=== PATIENT | female | born 1970 | race Caucasian/White ===

== ENCOUNTER 2017-11-14 08:07 | Emergency (ER) | payer MEDICARE ==
[2017-11-14] MEDS ORDERED: Hydromorphone 1 mg/ml Ampule IM ONE (08:24)
[2017-11-14] MEDS ORDERED: ZOFRAN ODT 4 MG PO ONE (08:25)
[2017-11-14] MEDS ORDERED: Zofran 4 MG/2 ML VIAL ONE (08:27)
[2017-11-14] MEDS ORDERED: DILAUDID 2 MG INJECTION ONE (08:27)
--- NOTE | 2017-11-14 08:28 | ERPHSYRPT ---
- History of Present Illness Time Seen by Provider: 11/14/17 08:26 Source: patient, family Patient Subjective Stated Complaint: pt here for pain to left arm, pt states that she was getting ready for dyalsis today and she had sudden pain to upper left arm, she states is a squeezing pain, she is moaning out and yelling at staff. Triage Nursing Assessment: pt has strong radial pulse to right arm, hand warm, upper arm with fistula with weak brui Physician History: mod constant pain ache today at dialysis when theyt attempted to access the fistula, no active bleeding, no fever, no other injury Allergies/Adverse Reactions: Penicillins Allergy (Verified 11/14/17 08:22) Hx Influenza Vaccination/Date Given: Yes Hx Pneumococcal Vaccination/Date Given: No Immunizations Up to Date: Yes - Review of Systems Constitutional: No Fever Respiratory: No Dyspnea Cardiac: No Chest Pain Abdominal/Gastrointestinal: No Vomiting Neurological: No Dizziness - Past Medical History Pertinent Past Medical History: Yes Endocrine Medical History: Diabetes Type II History: Dialysis - Past Surgical History Past Surgical History: Yes Other Surgical History: fistula - Social History Smoking Status: Current every day smoker Exposure to second hand smoke: Yes Drug Use: none Patient Lives Alone: No - Female History Hx Last Menstrual Period: post Hx Now: No - Nursing Vital Signs Nursing Vital Signs: Pain Scale Pain Intensity 8 - Physical Exam General Appearance: no apparent distress Neck Exam: normal inspection Respiratory Exam: No respiratory distress Cardiovascular Exam: regular rate/rhythm Extremity Exam: other (tender left arm fistula, hand is warm, no streaks) Neurologic Exam: alert, oriented x 3 Oxygen Delivery: Room Air - Course Nursing assessment & vital signs reviewed: Yes Ordered Tests: Medication Summary Discontinued Medications Generic Name Dose Route Start Last Admin Trade Name Paulq PRN Reason Stop Dose Admin Hydromorphone HCl 1 mg 11/14/17 08:24 Hydromorphone 1 Mg/Ml Ampule IM 11/14/17 08:25 STAT ONE Hydromorphone HCl Confirm 11/14/17 08:27 Dilaudid 2 Mg Injection Administered 11/14/17 08:28 Dose 2 mg .ROUTE .STK-MED ONE Ondansetron HCl 4 mg 11/14/17 08:25 Zofran Odt 4 Mg PO 11/14/17 08:26 STAT ONE Ondansetron HCl Confirm 11/14/17 08:27 Zofran 4 Mg/2 Ml Vial Administered 11/14/17 08:28 Dose 4 mg .ROUTE .STK-MED ONE Ondansetron HCl Confirm 11/14/17 08:30 Zofran Odt 4 Mg Administered 11/14/17 08:31 Dose 4 mg .ROUTE .STK-MED ONE - Progress Progress: improved Progress Note: 11/14/17 08:37 Dr London requests that the pt transfer to his office immediately Counseled pt/family regarding: need for follow-up - Departure Time of Disposition: 08:37 Departure Disposition: Transfer Clinical Impression: Fistula Condition: Stable Critical Care Time: No Referrals: FIOR DASILVA [Primary Care Provider] -
[2017-11-14] MEDS ORDERED: ZOFRAN ODT 4 MG ONE (08:30)
[2017-11-14 08:57] VITALS: BP 146/80; PULSE 82; O2SAT 96
== END 2017-11-14 09:05 | disposition critical access hospital (66) ==
LOC: ED 08:07
DX: M25.18 Fistula, other specified site (principal); M79.622 Pain in left upper arm; Z72.0 Tobacco use
CPT/HCPCS: 96372; 99284; J1170; J2405; Q0162

== ENCOUNTER 2019-03-10 10:11 | Emergency (ER) | payer MEDICARE ==
--- NOTE | 2019-03-10 10:33 | ERPHSYRPT ---
- History of Present Illness Time Seen by Provider: 03/10/19 10:20 Source: patient, other ([facility]) Exam Limitations: no limitations Patient Subjective Stated Complaint: Pt was at dialysis and the nurse noticed that she was very lethargic and couldn't answer questions, once pt got to the ER she is answering questions and acting appropriately, pt states that she took codeine cough syrup yesterday and her said that she wasn't making any sense when she spoke and then last night around [id number] she took a tylenol #3 and she stated that she was lethargic and confused this morning Triage Nursing Assessment: Pt brought by EMS, pt A&O x3, hypertensive, denies pain, right eye filled with blood, no difficulties with strength, other vitals wnl Physician History: Patient was referred to the emergency department by [facility]. Patient gets dialysis Sunday, Sunday and Sunday. Per nursing report at [facility], patient was 100.4kg on 03/07/2019 and was 102kg on 03/10/2019. Patient did not finish dialysis and was given 500cc of fluid back due to patient having altered mental status during dialysis. Patient's altered mental status resolved by the time she left the dialysis center at 10:00 on 2018. Patient has been taking Tylenol with codeine for a cough from pneumonia, with diagnosis of pneumonia from 3 weeks ago. The last time she took Tylenol with codeine was @ 23:00 on 03/09/2019. Timing/Duration: today (occured at 09:35, resolved by 10:00), resolved prior to arrival, sudden Severity: moderate Modifying Factors: Improves With: nothing Associated Symptoms: other (altered mental status), No nausea, No vomiting, No abdominal pain, No shortness of breath, No heartburn, No diaphoresis, No chills , No chest pain, No fever, No headaches, No loss of appetite, No malaise, No rash, No syncope, No seizure, No weakness Allergies/Adverse Reactions: DAVID Inhibitors Allergy (Verified 03/10/19 10:25) Penicillins Allergy (Verified 11/14/17 08:22) Home Medications: Atropine Sulfate [Atropine Sulfate Eye Drops] 1 drop OP BID 03/10/19 [History] Bimatoprost 0.01% [Lumigan 0.01% 2.5 ml] 1 drop OP UD 03/10/19 [History] Brimonidine Tartrate/Timolol [Combigan 0.2%-0.5% Eye Drops] 1 drop OP UD [History] Codeine Phosphate/APAP #3 [Tylenol #3 Tablet] 1 - 2 tab PO Q4H PRN 03/10/19 [History] Dorzolamide HCl 1 drop OP TID 03/10/19 [History] Latanoprost 1 drop OP HS 03/10/19 [History] Promethazine HCl/Codeine [Prometh-Codein 6.25-10 mg/5 ml] 5 ml PO Q6H PRN [History] acetaZOLAMIDE [Acetazolamide ER] 500 mg PO BID 03/10/19 [History] prednisoLONE acetate [Prednisolone Acetate] 1 drop OP Q2H 03/10/19 [History] Hx Influenza Vaccination/Date Given: Yes Hx Pneumococcal Vaccination/Date Given: No - Review of Systems Constitutional: No Fever, No Chills, No Fatigue Eyes: No Eye Pain, No Vision Changes Ears, Nose, & Throat: No Nose Congestion, No Throat Pain, No Throat Swelling, No Painful Swallowing Respiratory: Cough, No Dyspnea Cardiac: No Chest Pain, No Edema, No Palpitations, No Syncope Abdominal/Gastrointestinal: No Abdominal Pain, No Nausea, No Vomiting, No Hematemesis, No Hematochezia, No Melena Genitourinary Symptoms: No Dysuria, No Frequency, No Hematuria, No Flank Pain Musculoskeletal: No Back Pain, No Neck Pain, No Joint Swelling Skin: No Pruritis, No Rash Neurological: No Dizziness, No Focal Weakness, No Headache, No Lethargy, No Sensory Changes, No Speech Changes Psychological: No Anxiety Endocrine: No Excessive Sweating Hematologic/Lymphatic: No Easy Bleeding, No Easy Bruising All Other Systems: Reviewed and Negative - Past Medical History Pertinent Past Medical History: Yes Endocrine Medical History: Diabetes Type II History: Dialysis - Past Surgical History Past Surgical History: Yes Other Surgical History: fistula - Social History Smoking Status: Current every day smoker How long have you smoked: 30 years Exposure to second hand smoke: Yes Drug Use: none Patient Lives Alone: No - Female History Hx Now: No - Nursing Vital Signs Nursing Vital Signs: Initial Vital Signs Temperature 97.6 F 03/10/19 10:12 Pulse Rate 93 H 03/10/19 10:12 Blood Pressure 153/53 03/10/19 10:12 O2 Sat by Pulse Oximetry 98 03/10/19 10:12 Pain Scale Pain Intensity 0 - Physical Exam General Appearance: no apparent distress, alert Eye Exam: PERRL/EOMI, eyes nml inspection, No scleral icterus, No pale conjunctivae Ears, Nose, Throat Exam: normal ENT inspection, TMs normal, pharynx normal, moist mucous membranes Neck Exam: normal inspection, non-tender, supple, full range of motion, No meningismus, No Brudzinski, No Kernig's, No limited range of motion, No lymphadenopathy Respiratory Exam: normal breath sounds, lungs clear, airway intact, No chest tenderness, No respiratory distress, No diminished breath sounds, No accessory muscle use, No prolonged expirations, No crackles/rales, No rhonchi, No wheezing , No stridor, No pleural rub Cardiovascular Exam: regular rate/rhythm, normal heart sounds, normal peripheral pulses, capillary refill <2 sec Gastrointestinal/Abdomen Exam: soft, normal bowel sounds, No tenderness, No distention, No guarding, No ecchymosis Back Exam: normal inspection, normal range of motion, No CVA tenderness, No vertebral tenderness, No rash Extremity Exam: normal inspection, normal range of motion, pelvis stable, No kvng's sign Neurologic Exam: alert, oriented x 3, cooperative, fashion supervisor II-XII nml as tested, normal mood/affect, nml cerebellar function, sensation nml, No motor deficits, No agitation, No motor weakness Skin Exam: normal color, warm, dry, No rash, No petechiae, No jaundice, No cyanosis SpO2 Interpretation: normal SpO2: 98 O2 Delivery: Room Air - Course Nursing assessment & vital signs reviewed: Yes EKG Interpreted by Me: RATE (83), Sinus Rhythm, NORMAL AXIS, NORMAL INTERVALS, NORMAL QRS, NORMAL ST-T, Other (negative previous EKGis available for comparison ) - Radiology Exams Chest X-ray Interpretation: Reviewed by me, Other (per radiologist interpretation: portable chest there is requiring previous right upper/right middle lobe infiltrate with chronic fibrosis/scarring. The left base fibrosis/scarring and left upper extremity graft. Heart is not enlarged. No new acute cardiopulmonary abnormalities.) Ordered Tests: Active Orders 24 hr Category Date Time Status Chef De Froid STAT Care 03/10/19 10:28 Active Cath for Specimen-Straight STAT Care 03/10/19 10:27 Active EKG-ER Only STAT Care 03/10/19 10:25 Active IV Insertion STAT Care 03/10/19 10:25 Active CHEST 1 VIEW (PORTABLE) Stat Exams 03/10/19 10:26 Completed AMYLASE Stat Lab 03/10/19 10:40 Completed CBC W DIFF Stat Lab 03/10/19 10:40 Completed CMP Stat Lab 03/10/19 10:40 Completed CULTURE,URINE Stat Lab 03/10/19 10:26 Uncollected LIPASE Stat Lab 03/10/19 10:40 Completed Lactic Acid Stat Lab 03/10/19 10:50 Completed PROTIME WITH INR Stat Lab 03/10/19 10:40 Completed TROPONIN Q3H Lab 03/10/19 10:40 Completed TROPONIN Q3H Lab 03/10/19 13:30 Ordered TROPONIN Q3H Lab 03/10/19 16:30 Ordered TROPONIN Q3H Lab 03/10/19 19:30 Ordered TROPONIN Q3H Lab 03/10/19 22:30 Ordered UA W/RFX UR CULTURE Stat Lab 03/10/19 10:26 Uncollected Urine Triage Profile Stat Lab 03/10/19 10:26 Uncollected Lab/Rad Data: Laboratory Result Diagrams 03/10/19 10:40 03/10/19 10:40 Laboratory Results 03/10/19 03/10/19 03/10/19 Range/Units 10:50 10:40 10:40 WBC (4.0-10.5) K/mm3 RBC (4.1-5.4) M/mm3 Hgb (12.0-16.0) gm/dl Hct (35-47) % MCV (78-100) fl MCH (26-32) pg MCHC (32-36) g/dl RDW (11.5-14.0) % Plt Count (150-450) K/mm3 MPV (6-9.5) fl Gran % (36.0-66.0) % Eos # (Auto) (0-0.5) Absolute Lymphs (auto) (1.0-4.6) Absolute Monos (auto) (0.0-1.3) Lymphocytes % (24.0-44.0) % Monocytes % (0.0-12.0) % Eosinophils % (0.00-5.0) % Basophils % (0.0-0.4) % Absolute Granulocytes (1.4-6.9) Basophils # (0-0.4) PT 11.9 (9.95-12.35) SECONDS INR 1.05 (0.8-3.0) Sodium (137-145) mmol/L Potassium (3.5-5.1) mmol/L Chloride (98-107) mmol/L Carbon Dioxide (22-30) mmol/L Anion Gap (5-15) MEQ/L BUN (7-17) mg/dL Creatinine (0.52-1.04) mg/dL Estimated GFR ML/MIN Glucose (74-106) mg/dL Lactic Acid 1.2 (0.4-2.0) Calcium (8.4-10.2) mg/dL Total Bilirubin (0.2-1.3) mg/dL AST (14-36) U/L ALT (0-35) U/L Alkaline Phosphatase (38-126) U/L Troponin I < 0.012 (0.000-0.034) ng/mL Serum Total Protein (6.3-8.2) g/dL Albumin (3.5-5.0) g/dL Amylase (30-110) U/L Lipase (23-300) U/L 03/10/19 03/10/19 Range/Units 10:40 10:40 WBC 5.0 (4.0-10.5) K/mm3 RBC 2.79 L (4.1-5.4) M/mm3 Hgb 9.3 L (12.0-16.0) gm/dl Hct 30.7 L (35-47) % MCV 110.0 H (78-100) fl MCH 33.3 H (26-32) pg MCHC 30.3 L (32-36) g/dl RDW 15.9 H (11.5-14.0) % Plt Count 145 L (150-450) K/mm3 MPV 11.0 H (6-9.5) fl Gran % 77.6 H (36.0-66.0) % Eos # (Auto) 0.11 (0-0.5) Absolute Lymphs (auto) 0.70 L (1.0-4.6) Absolute Monos (auto) 0.29 (0.0-1.3) Lymphocytes % 14.0 L (24.0-44.0) % Monocytes % 5.8 (0.0-12.0) % Eosinophils % 2.2 (0.00-5.0) % Basophils % 0.4 (0.0-0.4) % Absolute Granulocytes 3.89 (1.4-6.9) Basophils # 0.02 (0-0.4) PT (9.95-12.35) SECONDS INR (0.8-3.0) Sodium 140 (137-145) mmol/L Potassium 4.4 (3.5-5.1) mmol/L Chloride 95 L (98-107) mmol/L Carbon Dioxide 33 H (22-30) mmol/L Anion Gap 16.9 H (5-15) MEQ/L BUN 47 H (7-17) mg/dL Creatinine 8.65 H (0.52-1.04) mg/dL Estimated GFR 5.2 ML/MIN Glucose 139 H (74-106) mg/dL Lactic Acid (0.4-2.0) Calcium 8.6 (8.4-10.2) mg/dL Total Bilirubin 0.70 (0.2-1.3) mg/dL AST 16 (14-36) U/L ALT 14 (0-35) U/L Alkaline Phosphatase 82 (38-126) U/L Troponin I (0.000-0.034) ng/mL Serum Total Protein 7.4 (6.3-8.2) g/dL Albumin 4.1 (3.5-5.0) g/dL Amylase 62 (30-110) U/L Lipase 111 (23-300) U/L - Progress Progress: unchanged Progress Note: 03/10/19 11:28 Patient has no signs of any focal neurologic deficits, has maintained sinus rhythm on the cardiac nurse specialist her entire time in the emergency department and has no alterations in her mental status during her time in the emergency department. Most likely her symptoms were due to medication, and the patient did call over to dialysis and they stated that her chair is still available and she would like to go to finish her dialysis session. I find no reason that the patient requires any further monitoring in the emergency department or needs any inpatient evaluation and treatment, and she can be discharged home. Patient understands she may come back to the emergency department at any time if her symptoms return or has any other new symptoms that were present in the emergency room visit for reevaluation in the emergency department. Counseled pt/family regarding: lab results, diagnosis, need for follow-up, rad results - Departure Departure Disposition: Home Clinical Impression: Delirium, Elevated blood pressure reading without diagnosis of hypertension, Macrocytic anemia Condition: Good Critical Care Time: No Referrals: FIOR DASILVA [Primary Care Provider] - 03/11/19 Instructions: Delirium (Confusion) (DC), DASH Diet, Vitamin B12 Deficiency and Folic Acid Deficiency Additional Instructions: Return immediately back to the emergency department if you have any change in mental status, new chest pain, new back pain, any shortness of breath, new abdominal pain, new fever, new skin rash, or any other concerning signs or symptoms that were not present at today's emergency room visit for immediate reevaluation in the emergency department. Follow-up directly with a [facility] dialysis straight from the emergency Department to finish your session.
[2019-03-10 10:43] LABS: Absolute Neutrophil Ct (ANC) 3.89 (1.4-6.9); BASOPHIL % 0.4 % (0.0-0.4); Basophil (Absolute #) 0.02 (0-0.4); Eosinophil % 2.2 % (0.00-5.0); Eosinophil (Absolute #) 0.11 (0-0.5); Hematocrit 30.7 % (35-47); Hemoglobin 9.3 gm/dl (12.0-16.0); Mean Corpuscular Hemoglobin 33.3 pg (26-32); Mean Corpuscular Hgb Concent. 30.3 g/dl (32-36); Monocyte (Absolute #) 0.29 (0.0-1.3); Monocytes % 5.8 % (0.0-12.0); Neutrophil % 77.6 % (36.0-66.0); Platelet Count 145 K/mm3 (150-450); Red Blood Count 2.79 M/mm3 (4.1-5.4); Red Cell Distribution Width 15.9 % (11.5-14.0)
--- NOTE | 2019-03-10 10:45 | XRAY ---
Indication: Cough. Recent pneumonia. Comparison: February 17, 2019. Portable chest demonstrates clearing previous right upper/right middle lobe infiltrates with remnant fibrosis/scarring. Stable left base fibrosis/scarring and left upper extremity stent grafts. Heart is not enlarged. No new acute cardiopulmonary abnormalities.
[2019-03-10 10:55] LABS: INR 1.05 (0.8-3.0); PROTIME 11.9 SECONDS (9.95-12.35)
[2019-03-10 11:01] LABS: ALBUMIN 4.1 g/dL (3.5-5.0); ANION GAP 16.9 MEQ/L (5-15); BILIRUBIN,TOTAL 0.7 mg/dL (0.2-1.3); Calcium 8.6 mg/dL (8.4-10.2); Creatinine 1 8.65 mg/dL (0.52-1.04); Potassium 4.4 mmol/L (3.5-5.1); Total Protein 7.4 g/dL (6.3-8.2)
[2019-03-10 11:22] VITALS: BP 159/65; PULSE 79
[2019-03-10 11:33] VITALS: O2SAT 98
== END 2019-03-10 11:44 | disposition home or self-care (01) ==
LOC: ED 10:11
DX: R41.0 Disorientation, unspecified (principal); R03.0 Elevated blood-pressure reading, without diagnosis of hypertension; D53.9 Nutritional anemia, unspecified; Z99.2 Dependence on renal dialysis; R41.82 Altered mental status, unspecified; Z79.899 Other long term (current) drug therapy
CPT/HCPCS: 36000; 36415; 71045; 80053; 82150; 83605; 83690; 84484; 85025; 85610; 93005; 93041; 99284

== ENCOUNTER 2020-10-24 18:46 | Emergency (ER) | payer MEDICARE ==
--- NOTE | 2020-10-24 19:29 | ERPHSYRPT ---
- History of Present Illness Time Seen by Provider: 10/24/20 18:55 Source: patient Exam Limitations: no limitations Patient Subjective Stated Complaint: pt here for a fall she states she missed a curb and landed on her knees, pain is worse to left knee Triage Nursing Assessment: pt alert, resp easy, skin w/d/p. able to parial wt on left leg Physician History: Patient is a 50-year-old female who presents with history of a fall she has limited vision due to her chronic end-stage renal disease and she missed a curb she fell landing on both knees and both hands the right knee seems to be okay but does have some pain the hands have some pain but the most pain is in the left knee. Occurred: just prior to arrival Reason for Fall: tripped Injuries/Pain Location: upper extremity (Both hands), lower extremity (Both knees) Loss of Consciousness: no loss of consciousness Severity of Pain-Max: moderate Severity of Pain-Current: moderate Modifying Factors: Improves With: nothing Associated Symptoms (Fall): denies symptoms Allergies/Adverse Reactions: DAVID Inhibitors Allergy (Verified 10/24/20 18:57) Penicillins Allergy (Verified 10/24/20 18:57) Home Medications: Atropine Sulfate [Atropine Sulfate Eye Drops] 1 drop OP BID 03/10/19 [History] Bimatoprost 0.01% [Lumigan 0.01% 2.5 ml] 1 drop OP UD 03/10/19 [History] Brimonidine Tartrate/Timolol [Combigan 0.2%-0.5% Eye Drops] 1 drop OP UD 03/10/19 [History] Dorzolamide HCl 1 drop OP TID 03/10/19 [History] acetaZOLAMIDE [Acetazolamide ER] 500 mg PO BID 03/10/19 [History] prednisoLONE acetate [Prednisolone Acetate] 1 drop OP Q2H 03/10/19 [History] Glipizide 5 mg [Glucotrol 5 MG] 1 ea DAILY 10/24/20 [History] Hx Influenza Vaccination/Date Given: No Hx Pneumococcal Vaccination/Date Given: No Immunizations Up to Date: Yes Travel Risk - International Travel Have you traveled outside of the country in past 3 weeks: No - Coronavirus Screening Are you exhibiting any of the following symptoms?: No Close contact with a COVID-19 positive Pt in past 14-21 Days: No - Vaccine Status Have you recieved a Covid-19 vaccination: No - Review of Systems Constitutional: No Fever, No Chills Eyes: No Symptoms Ears, Nose, & Throat: No Symptoms Respiratory: No Cough, No Dyspnea Cardiac: No Chest Pain, No Edema, No Syncope Abdominal/Gastrointestinal: No Abdominal Pain, No Nausea, No Vomiting, No Diarrhea Genitourinary Symptoms: No Dysuria Musculoskeletal: No Back Pain, No Neck Pain Skin: No Rash Neurological: No Dizziness, No Focal Weakness, No Sensory Changes Psychological: No Symptoms Endocrine: No Symptoms All Other Systems: Reviewed and Negative - Past Medical History Pertinent Past Medical History: Yes Neurological History: Peripheral Neuropathy ENT History: Other Cardiac History: Hypertension Endocrine Medical History: Diabetes Type II History: Dialysis, Renal Disease Other Medical History: legally blind - Past Surgical History Past Surgical History: Yes Other Surgical History: fistula - Social History Smoking Status: Current every day smoker How long have you smoked: 30 years Exposure to second hand smoke: Yes Drug Use: none Patient Lives Alone: No - Female History Hx Last Menstrual Period: post - Nursing Vital Signs Nursing Vital Signs: Pain Scale Pain Intensity 10 - Joel Coma Score Best Eye Response (Joel): (4) open spontaneously Best Verbal Response (Joel): (5) oriented Best Motor Response (Wayne): (6) obeys commands Joel Total: 15 - Physical Exam General Appearance: no apparent distress, alert Head Injury: no evidence of injury Eye Exam: PERRL/EOMI ENT Exam: airway nml Neck Exam: normal inspection, No tenderness Respiratory/Chest Exam: normal breath sounds, No chest tenderness, No respiratory distress Cardiovascular Exam: normal heart sounds, regular rate/rhythm Gastrointestinal Exam: soft, No tenderness, No distention, No guarding, No ecchymosis Back Exam: normal inspection, No vertebral tenderness Extremity Exam: normal range of motion, pelvis stable, other (Both hands and both knees were examined both knees are tender the left more than the right both hands have some slight tenderness but full range of motion neurovascular tendon intact), No deformities Neurologic Exam: alert, oriented x 3, cooperative, sensation nml, No motor deficits Skin Exam: normal color, warm, dry - Course Nursing assessment & vital signs reviewed: Yes - Radiology Exams Knee X-ray Interpretation: Interpreted by me, Other (X-rays of both hands and both knees are negative for fracture or dislocation) Ordered Tests: Active Orders 24 hr Category Date Time Status HAND (MINIMUM 3 VIEWS) Stat Exams 10/24/20 19:29 Taken HAND (MINIMUM 3 VIEWS) Stat Exams 10/24/20 19:29 Taken KNEE (3 VIEWS) Stat Exams 10/24/20 19:29 Taken KNEE (3 VIEWS) Stat Exams 10/24/20 19:29 Taken - Progress Progress: unchanged - Departure Departure Disposition: Home Clinical Impression: Fall, Multiple contusions Condition: Stable Critical Care Time: No Referrals: FIOR DASILVA [Primary Care Provider] - Instructions: Contusion (DC), Preventing Falls
[2020-10-24 19:53] VITALS: BP 117/50; PULSE 66; O2SAT 97
--- NOTE | 2020-10-25 08:47 | XRAY ---
Indication: Pain following fall. Comparison: None 3 view left knee demonstrates mild medial joint space narrowing and extensive scattered vascular calcifications. No other bony, articular, or soft tissue abnormalities.
--- NOTE | 2020-10-25 08:47 | XRAY ---
Indication: Pain following fall. Comparison: None 3 view right knee demonstrates mild medial joint space narrowing and extensive scattered vascular calcifications. No other bony, articular, or soft tissue abnormalities.
--- NOTE | 2020-10-25 08:47 | XRAY ---
Indication: Pain following fall. Comparison: None 3 view left hand demonstrates old 5th metacarpal fracture and scattered vascular calcifications. No other bony, articular, or soft tissue abnormalities.
--- NOTE | 2020-10-25 08:49 | XRAY ---
Indication: Pain following fall. Comparison: None 3 view right hand demonstrates scattered vascular calcifications. No other bony, articular, or soft tissue abnormalities.
== END 2020-10-24 20:00 | disposition home or self-care (01) ==
LOC: ED 18:46
DX: S80.02XA Contusion of left knee, initial encounter (principal); S80.01XA Contusion of right knee, initial encounter; S60.222A Contusion of left hand, initial encounter; S60.221A Contusion of right hand, initial encounter; W10.1XXA Fall (on)(from) sidewalk curb, initial encounter; I10 Essential (primary) hypertension; E11.9 Type 2 diabetes mellitus without complications; G62.9 Polyneuropathy, unspecified
CPT/HCPCS: 73130; 73562; 99283

== ENCOUNTER 2021-09-24 18:51 | Emergency (ER) | payer MEDICARE ==
[2021-09-24 19:07] VITALS: BP 109/83; PULSE 85; O2SAT 94
--- NOTE | 2021-09-25 00:37 | ERPHSYRPT ---
- History of Present Illness Time Seen by Provider: 09/24/21 18:53 Source: patient Exam Limitations: no limitations Patient Subjective Stated Complaint: pt here for drainage to dialysis fistula seen yesterday, she had ballooning of that on and dialysis on sunday, Triage Nursing Assessment: pt alert, walked in, resp easy, skin w/d/p. has fistula to right upper arm with good bure, has serous drainage noted Physician History: 51 years old female with history of end-stage renal disease on dialysis had some kind of procedure done on the right fistula 2 days ago presented in the ER after she noticed some clear drainage from area of fistula in the arm. Patient reports she has dialysis done yesterday. Denies any pain swelling redness. No fever or chills reported. Timing/Duration: yesterday, gradual onset Severity: mild Associated Symptoms: denies symptoms Allergies/Adverse Reactions: DAVID Inhibitors Allergy (Verified 09/24/21 19:07) Penicillins Allergy (Verified 09/24/21 19:07) Home Medications: Atropine Sulfate [Atropine Sulfate Eye Drops] 1 drop OP BID 03/10/19 [History] Bimatoprost 0.01% [Lumigan 0.01% 2.5 ml] 1 drop OP UD 03/10/19 [History] Brimonidine Tartrate/Timolol [Combigan 0.2%-0.5% Eye Drops] 1 drop OP UD 03/10/19 [History] Dorzolamide HCl 1 drop OP TID 03/10/19 [History] acetaZOLAMIDE [Acetazolamide ER] 500 mg PO BID 03/10/19 [History] prednisoLONE acetate [Prednisolone Acetate] 1 drop OP Q2H 03/10/19 [History] Glipizide 5 mg [Glucotrol 5 MG] 1 ea DAILY 10/24/20 [History] Hx Influenza Vaccination/Date Given: No Hx Pneumococcal Vaccination/Date Given: No Immunizations Up to Date: Yes Travel Risk - International Travel Have you traveled outside of the country in past 3 weeks: No - Coronavirus Screening Are you exhibiting any of the following symptoms?: No Close contact with a COVID-19 positive Pt in past 14-21 Days: No - Vaccine Status Have you recieved a Covid-19 vaccination: No - Review of Systems Constitutional: No Symptoms Ears, Nose, & Throat: No Symptoms Respiratory: No Symptoms Cardiac: No Symptoms Abdominal/Gastrointestinal: No Symptoms Genitourinary Symptoms: No Symptoms Musculoskeletal: No Symptoms Skin: No Symptoms Neurological: No Symptoms Psychological: No Symptoms - Past Medical History Pertinent Past Medical History: Yes Neurological History: Peripheral Neuropathy ENT History: Other Cardiac History: Hypertension Endocrine Medical History: Diabetes Type II History: Dialysis, Renal Disease Other Medical History: legally blind - Past Surgical History Past Surgical History: Yes Other Surgical History: fistula - Social History Smoking Status: Current every day smoker How long have you smoked: 30 years Exposure to second hand smoke: Yes Drug Use: none Patient Lives Alone: No - Nursing Vital Signs Nursing Vital Signs: Initial Vital Signs Temperature 96.5 F 09/24/21 19:01 Pulse Rate 85 09/24/21 19:01 Respiratory Rate 18 09/24/21 19:01 Blood Pressure 109/83 09/24/21 19:01 O2 Sat by Pulse Oximetry 94 L 09/24/21 19:01 Pain Scale Pain Intensity 0 - Physical Exam General Appearance: no apparent distress, alert Eye Exam: PERRL/EOMI Ears, Nose, Throat Exam: normal ENT inspection Neck Exam: normal inspection, supple, full range of motion Respiratory Exam: normal breath sounds, lungs clear Cardiovascular Exam: regular rate/rhythm, normal heart sounds Extremity Exam: other (Right arm fistula with clear to serous minimal oozing at the lower end of fistula. No erythema, increased temperature or tenderness.) Neurologic Exam: alert, oriented x 3, cooperative Skin Exam: normal color SpO2 Interpretation: normal SpO2: 94 O2 Delivery: Room Air - Progress Progress: unchanged Progress Note: 09/25/21 00:35 51 years old presented in the ER with clear to serous oozing from lower end of right arm AV fistula. Patient has procedure done 2 days ago at [facility]. I have asked the nursing staff to get hold of vascular surgeon but before it was done patient decided to leave AGAINST MEDICAL ADVICE without informing me and nursing staff got AMA papers signed. There was no signs of cellulitis/abscess during my evaluation. - Departure Departure Disposition: AMA Clinical Impression: Complication of AV dialysis fistula Condition: Good Critical Care Time: No Referrals: FIOR DASILVA [Primary Care Provider] - Follow up/PCP as directed
== END 2021-09-24 20:16 | disposition left against medical advice (07) ==
LOC: ED 18:51
DX: T82.898A Other specified complication of vascular prosthetic devices, implants and grafts, initial encounter (principal); E11.22 Type 2 diabetes mellitus with diabetic chronic kidney disease; N18.6 End stage renal disease; Z99.2 Dependence on renal dialysis; Z79.84 Long term (current) use of oral hypoglycemic drugs; E11.42 Type 2 diabetes mellitus with diabetic polyneuropathy; I12.0 Hypertensive chronic kidney disease with stage 5 chronic kidney disease or end stage renal disease; Z72.0 Tobacco use; Z79.899 Other long term (current) drug therapy; Z79.52 Long term (current) use of systemic steroids
CPT/HCPCS: 99283

== ENCOUNTER 2021-10-16 05:36 | Emergency (ER) | payer MEDICARE ==
--- NOTE | 2021-10-16 05:58 | ERPHSYRPT ---
- History of Present Illness Time Seen by Provider: 10/16/21 05:57 Source: patient Exam Limitations: no limitations Physician History: This is a 51-year-old obese, diabetic white female patient who has renal failure and is on dialysis and presents to the emergency department for evaluation because she thinks she took an extra dose of all 3 of her blood pressure medications. Patient was talking to her [id number] at approximate 3:00 in the morning and thinks she took the extra doses. It was accidental. She is not certain. She is certain that approximately 5:30 AM this morning, she took her blood pressure medication. Upon triage into the emergency department, her systolic blood pressure was in the 150s. Poison Control Center was contacted/consulted. They state that the patient does not need intravenous fluids or laboratory work-up. However, she needs 8-hour observation for the time she possibly took her last doses of her blood pressure medication. Patient denies headache. Patient denies new, acute visual changes. Patient denies chest pain. Patient denies shortness of breath. Patient has no abdominal pain. Patient denies nausea vomiting or diarrhea. Patient denies fever and chills. Timing/Duration: today Modifying Factors: Improves With: nothing Associated Symptoms: denies symptoms Allergies/Adverse Reactions: DAVID Inhibitors Allergy (Verified 10/16/21 05:51) Penicillins Allergy (Verified 09/24/21 19:07) Home Medications: Atropine Sulfate [Atropine Sulfate Eye Drops] 1 drop OP BID 03/10/19 [History] Bimatoprost 0.01% [Lumigan 0.01% 2.5 ml] 1 drop OP UD 03/10/19 [History] Brimonidine Tartrate/Timolol [Combigan 0.2%-0.5% Eye Drops] 1 drop OP UD 03/10/19 [History] Dorzolamide HCl 1 drop OP TID 03/10/19 [History] acetaZOLAMIDE [Acetazolamide ER] 500 mg PO BID 03/10/19 [History] prednisoLONE acetate [Prednisolone Acetate] 1 drop OP Q2H 03/10/19 [History] Glipizide 5 mg [Glucotrol 5 MG] 1 ea DAILY 10/24/20 [History] Hx Influenza Vaccination/Date Given: No Hx Pneumococcal Vaccination/Date Given: No Travel Risk - International Travel Have you traveled outside of the country in past 3 weeks: No - Coronavirus Screening Are you exhibiting any of the following symptoms?: No Close contact with a COVID-19 positive Pt in past 14-21 Days: No - Vaccine Status Have you recieved a Covid-19 vaccination: No - Review of Systems Constitutional: No Symptoms Eyes: No Symptoms Ears, Nose, & Throat: No Symptoms Respiratory: No Symptoms Cardiac: No Symptoms Abdominal/Gastrointestinal: No Symptoms Genitourinary Symptoms: No Symptoms Musculoskeletal: No Symptoms Skin: No Symptoms Neurological: No Symptoms Psychological: No Symptoms Endocrine: No Symptoms Hematologic/Lymphatic: No Symptoms Immunological/Allergic: No Symptoms All Other Systems: Reviewed and Negative - Past Medical History Pertinent Past Medical History: Yes Neurological History: Peripheral Neuropathy ENT History: Other Cardiac History: Hypertension Endocrine Medical History: Diabetes Type II History: Dialysis, Renal Disease Other Medical History: legally blind - Past Surgical History Past Surgical History: Yes Other Surgical History: fistula - Social History Smoking Status: Current every day smoker How long have you smoked: 30 years Exposure to second hand smoke: Yes Drug Use: none Patient Lives Alone: No - Nursing Vital Signs Nursing Vital Signs: Initial Vital Signs Temperature 97.3 F 10/16/21 05:51 Pulse Rate 79 10/16/21 05:51 Respiratory Rate 14 10/16/21 05:51 Blood Pressure 169/61 10/16/21 05:51 O2 Sat by Pulse Oximetry 98 10/16/21 05:51 Pain Scale Pain Intensity 0 - Physical Exam General Appearance: no apparent distress, alert, anxiety, obese Eye Exam: PERRL/EOMI, eyes nml inspection Ears, Nose, Throat Exam: normal ENT inspection, moist mucous membranes Neck Exam: normal inspection, non-tender, supple, full range of motion Respiratory Exam: normal breath sounds, lungs clear, airway intact, No chest tenderness, No respiratory distress Cardiovascular Exam: regular rate/rhythm, normal heart sounds, normal peripheral pulses Gastrointestinal/Abdomen Exam: soft, normal bowel sounds, No tenderness Pelvic Exam: not done Rectal Exam: not done Back Exam: normal inspection, normal range of motion, No CVA tenderness, No vertebral tenderness Extremity Exam: normal inspection, normal range of motion, pelvis stable Neurologic Exam: alert, oriented x 3, cooperative, record tester II-XII nml as tested, normal mood/affect, sensation nml Skin Exam: normal color, warm, dry Lymphatic Exam: No adenopathy SpO2 Interpretation: normal O2 Delivery: Room Air - Course Nursing assessment & vital signs reviewed: Yes - Progress Progress: unchanged Progress Note: 10/16/21 06:45 Patient signed out to/transfer care to Dr. Moy Contreras at shift change. He will continue to observe the patient and make final disposition. Counseled pt/family regarding: diagnosis - Departure Departure Disposition: Home Clinical Impression: Well adult health check, Accidental medication overdose Condition: Stable Critical Care Time: No Referrals: FIOR DASILVA [Primary Care Provider] - Follow up/PCP as directed Additional Instructions: Continue medication as prescribed. Continue your kidney dialysis at your scheduled appointment dates and times.
[2021-10-16 08:34] VITALS: BP 150/65; PULSE 64; O2SAT 95
== END 2021-10-16 08:44 | disposition left against medical advice (07) ==
LOC: ED 05:36
DX: Z03.6 Encounter for observation for suspected toxic effect from ingested substance ruled out (principal); I12.0 Hypertensive chronic kidney disease with stage 5 chronic kidney disease or end stage renal disease; N18.6 End stage renal disease; Z99.2 Dependence on renal dialysis; E11.42 Type 2 diabetes mellitus with diabetic polyneuropathy; E11.22 Type 2 diabetes mellitus with diabetic chronic kidney disease; Z79.899 Other long term (current) drug therapy; Z72.0 Tobacco use; Z28.310 Unvaccinated for COVID-19
CPT/HCPCS: 99283

== ENCOUNTER 2022-01-25 23:51 | Emergency (ER) | payer MEDICARE ==
[2022-01-26 00:11] VITALS: PULSE 85; O2SAT 97
--- NOTE | 2022-01-26 00:17 | ERPHSYRPT ---
- History of Present Illness Time Seen by Provider: 01/26/22 00:10 Source: patient, family Exam Limitations: no limitations Patient Subjective Stated Complaint: pt states "I had a bug bite and I was scratching on my arm and made it bleed." Triage Nursing Assessment: pt ambulatory to bed by self, pt alert and oriented x3, pt presents to ED with coban wrap around L lower arm, coban dressing removed and bleeding controlled at this time, pt is on heparin d/t diaylsis Physician History: This is a 51-year-old white female patient of Dr. Nieto who is in renal failure on kidney dialysis and presents with brisk venous oozing from skin ulceration site that occurred just prior to arrival to the emergency room. Patient thought she was bit by a bug and reached over to her left arm and scratched it accidentally. Patient used to have the dialysis in the left upper extremity. She no longer uses this limb for dialysis. However, it is under high pressure. Patient presents with a pressure dressing in place. There is no active bleeding at the time of her arrival to the emergency department. Timing/Duration: today Quality: itchy Severity: mild Location: extremities (Left forearm dorsal aspect) Possible Causes: other (Excoriation from nail scratching) Associated Symptoms: denies symptoms Allergies/Adverse Reactions: DAVID Inhibitors Allergy (Verified 01/26/22 00:01) Penicillins Allergy (Verified 01/26/22 00:01) baby oil Allergy (Uncoded 01/26/22 00:01) Home Medications: Atropine Sulfate [Atropine Sulfate Eye Drops] 1 drop OP BID 03/10/19 [History] Bimatoprost 0.01% [Lumigan 0.01% 2.5 ml] 1 drop OP UD 03/10/19 [History] Brimonidine Tartrate/Timolol [Combigan 0.2%-0.5% Eye Drops] 1 drop OP UD 03/10/19 [History] Dorzolamide HCl 1 drop OP TID 03/10/19 [History] acetaZOLAMIDE [Acetazolamide ER] 500 mg PO BID 03/10/19 [History] prednisoLONE acetate [Prednisolone Acetate] 1 drop OP Q2H 03/10/19 [History] Glipizide 5 mg [Glucotrol 5 MG] 1 ea DAILY 10/24/20 [History] Hx Tetanus, Diphtheria Vaccination/Date Given: Yes Hx Influenza Vaccination/Date Given: No Hx Pneumococcal Vaccination/Date Given: No Immunizations Up to Date: Yes Travel Risk - International Travel Have you traveled outside of the country in past 3 weeks: No - Coronavirus Screening Are you exhibiting any of the following symptoms?: No Close contact with a COVID-19 positive Pt in past 14-21 Days: No - Vaccine Status Have you recieved a Covid-19 vaccination: No - Review of Systems Constitutional: No Symptoms Eyes: No Symptoms Ears, Nose, & Throat: No Symptoms Respiratory: No Symptoms Cardiac: No Symptoms Abdominal/Gastrointestinal: No Symptoms Genitourinary Symptoms: No Symptoms Musculoskeletal: No Symptoms Skin: Other (Excoriation left upper extremity forearm dorsal aspect) Neurological: No Symptoms Psychological: No Symptoms Endocrine: No Symptoms Hematologic/Lymphatic: No Symptoms Immunological/Allergic: No Symptoms All Other Systems: Reviewed and Negative - Past Medical History Pertinent Past Medical History: Yes Neurological History: Peripheral Neuropathy ENT History: Other Cardiac History: Hypertension Respiratory History: No Pertinent History Endocrine Medical History: Diabetes Type II Musculoskeletal History: No Pertinent History GI Medical History: No Pertinent History History: Dialysis, Renal Disease Psycho-Social History: No Pertinent History Female Reproductive Disorders: No Pertinent History Other Medical History: legally blind - Past Surgical History Past Surgical History: Yes Neuro Surgical History: No Pertinent History Cardiac: No Pertinent History Respiratory: No Pertinent History Gastrointestinal: No Pertinent History Genitourinary: No Pertinent History Musculoskeletal: No Pertinent History Female Surgical History: No Pertinent History Other Surgical History: fistula - Social History Smoking Status: Current every day smoker How long have you smoked: 30 years Exposure to second hand smoke: Yes Drug Use: none Patient Lives Alone: No - Nursing Vital Signs Nursing Vital Signs: Initial Vital Signs Temperature 97.7 F 01/26/22 00:10 Pulse Rate 85 01/26/22 00:10 Respiratory Rate 18 01/26/22 00:10 O2 Sat by Pulse Oximetry 97 01/26/22 00:10 Pain Scale Pain Intensity 0 - Physical Exam General Appearance: no apparent distress, alert Eye Exam: PERRL/EOMI, eyes nml inspection Ears, Nose, Throat Exam: normal ENT inspection, moist mucous membranes Neck Exam: normal inspection, non-tender, supple, full range of motion Respiratory Exam: airway intact, No chest tenderness, No respiratory distress Gastrointestinal/Abdomen Exam: No tenderness Pelvic Exam: not done Rectal Exam: not done Back Exam: normal inspection, normal range of motion, No CVA tenderness, No vertebral tenderness Extremity Exam: normal range of motion, pelvis stable, other (2 very small excoriation sites with slow venous ooze after pressure dressing was applied at home.) Neurologic Exam: alert, oriented x 3, cooperative, cadworx piping designer II-XII nml as tested, normal mood/affect, nml cerebellar function, nml station & gait, sensation nml Skin Exam: other Lymphatic Exam: No adenopathy (The above) SpO2 Interpretation: normal SpO2: 97 O2 Delivery: Room Air Procedures - Additional Procedures Progress: Procedure note: Timeout performed at 0015 on 01/26/2022. The area was cleaned with Hibiclens. Dermabond was placed on the site. This was allowed to dry. Surgicel was placed overlying this site followed by a nonstick gauze, 4 x 4 gauze and a pressure dressing - Progress Progress: improved Counseled pt/family regarding: diagnosis - Departure Departure Disposition: Home Clinical Impression: Excoriation of forearm Condition: Stable Critical Care Time: No Referrals: FIOR NIETO [Primary Care Provider] - Follow up/PCP as directed Additional Instructions: May remove pressure dressing on the evening of 01/27/2022. Do not pull off the dressing if it is stuck to the site. Use warm water to allow the dressing to come off on its own without pulling. Cover the site each day with a Band-Aid until healed. Between now and the evening of 01/27/2022, may apply an ice pack to the site twice a day
== END 2022-01-26 00:28 | disposition home or self-care (01) ==
LOC: ED 23:51
DX: S50.812A Abrasion of left forearm, initial encounter (principal); W50.4XXA Accidental scratch by another person, initial encounter; I12.0 Hypertensive chronic kidney disease with stage 5 chronic kidney disease or end stage renal disease; E11.22 Type 2 diabetes mellitus with diabetic chronic kidney disease; N18.6 End stage renal disease; Z99.2 Dependence on renal dialysis; E11.42 Type 2 diabetes mellitus with diabetic polyneuropathy; Z72.0 Tobacco use; Z79.84 Long term (current) use of oral hypoglycemic drugs; Z79.899 Other long term (current) drug therapy; Z28.310 Unvaccinated for COVID-19
CPT/HCPCS: 99281

== ENCOUNTER 2022-02-28 20:05 | Emergency (ER) | payer MEDICARE ==
[2022-02-28 20:32] VITALS: O2SAT 100
[2022-02-28] MEDS ORDERED: MORPHINE SULFATE 4 MG INJ ONE (21:08)
[2022-02-28] MEDS: MORPHINE SULFATE 4 MG INJ IM ONE (21:10)
--- NOTE | 2022-02-28 21:14 | ERPHSYRPT ---
- History of Present Illness Time Seen by Provider: 02/28/22 20:15 Source: patient Exam Limitations: no limitations Patient Subjective Stated Complaint: pt states after a procedure in [facility] she fell off a curb and hurt her lt hip and ankle. states she was not able to wait t o be seen in [facility] and they drove down here. pt states increased pain while sitting. pt able to stand and bear weight on lt lower ext Triage Nursing Assessment: pt alert and oriented, answers questions approp. pt back per wheelchair and transfers to stretcher per self. pt able to bear weight on lt side. mild swelling noted to lt ankle. Physician History: Patient a 51-year-old female history of diabetes/end-stage renal disease on hemodialysis presents emergency department for evaluation of pain to her left ankle left hip and coccyx region. Patient states that she was in [place]. Patient had just gotten done with a procedure regarding her dialysis fistula. Patient fell off of a curb landed on her left hip and bottom. Injury occurred approximately 3:00 this afternoon. Pain described as an ache that is localized. No radiation. Pain worse palpation and ambulation. Prolonged sitting worsens pain. No other injuries reported. No BHT or LOC. No neck pain. Cervical spine cleared clinically. The fall was not associated with any neuro cardiovascular symptomology. No chest pain or shortness of breath. No nausea vomiting or diaphoresis. Patient voices no other complaints or concerns at this time. Portions of this note were created with voice recognition technology. There may be grammatical, spelling, punctuation or sound alike errors Timing/Duration: today Severity: moderate Modifying Factors: Improves With: other (Movement and palpation) Associated Symptoms: denies symptoms Allergies/Adverse Reactions: DAVID Inhibitors Allergy (Verified 02/28/22 20:47) Penicillins Allergy (Verified 02/28/22 20:47) baby oil Allergy (Uncoded 02/28/22 20:47) Home Medications: Atropine Sulfate [Atropine Sulfate Eye Drops] 1 drop OP BID 03/10/19 [History] Bimatoprost 0.01% [Lumigan 0.01% 2.5 ml] 1 drop OP UD 03/10/19 [History] Brimonidine Tartrate/Timolol [Combigan 0.2%-0.5% Eye Drops] 1 drop OP UD 03/10/19 [History] Dorzolamide HCl 1 drop OP TID 03/10/19 [History] acetaZOLAMIDE [Acetazolamide ER] 500 mg PO BID 03/10/19 [History] prednisoLONE acetate [Prednisolone Acetate] 1 drop OP Q2H 03/10/19 [History] Glipizide 5 mg [Glucotrol 5 MG] 1 ea DAILY 10/24/20 [History] Hx Tetanus, Diphtheria Vaccination/Date Given: Yes Hx Influenza Vaccination/Date Given: No Hx Pneumococcal Vaccination/Date Given: No Immunizations Up to Date: Yes Travel Risk - International Travel Have you traveled outside of the country in past 3 weeks: No - Coronavirus Screening Are you exhibiting any of the following symptoms?: No Close contact with a COVID-19 positive Pt in past 14-21 Days: No - Vaccine Status Have you recieved a Covid-19 vaccination: No - Review of Systems Constitutional: No Symptoms, No Fever, No Chills Eyes: No Symptoms Ears, Nose, & Throat: No Symptoms Respiratory: No Symptoms, No Cough, No Dyspnea Cardiac: No Symptoms, No Chest Pain, No Edema, No Syncope Abdominal/Gastrointestinal: No Symptoms, No Abdominal Pain, No Nausea, No Vomiting, No Diarrhea Genitourinary Symptoms: No Symptoms, No Dysuria Musculoskeletal: No Symptoms, No Back Pain, No Neck Pain Skin: No Symptoms, No Rash Neurological: No Symptoms, No Dizziness, No Focal Weakness, No Sensory Changes Psychological: No Symptoms Endocrine: No Symptoms Hematologic/Lymphatic: No Symptoms Immunological/Allergic: No Symptoms All Other Systems: Reviewed and Negative - Past Medical History Pertinent Past Medical History: Yes Neurological History: Peripheral Neuropathy ENT History: Other Cardiac History: Hypertension Respiratory History: No Pertinent History Endocrine Medical History: Diabetes Type II Musculoskeletal History: No Pertinent History GI Medical History: No Pertinent History History: Dialysis, Renal Disease Psycho-Social History: No Pertinent History Female Reproductive Disorders: No Pertinent History Other Medical History: legally blind - Past Surgical History Past Surgical History: Yes Neuro Surgical History: No Pertinent History Cardiac: No Pertinent History Respiratory: No Pertinent History Gastrointestinal: No Pertinent History Genitourinary: No Pertinent History Musculoskeletal: No Pertinent History Female Surgical History: No Pertinent History Other Surgical History: fistula, balloon procedure to fistula rt arm today - Social History Smoking Status: Current every day smoker How long have you smoked: 40 years Exposure to second hand smoke: Yes Drug Use: none Patient Lives Alone: No - Nursing Vital Signs Nursing Vital Signs: Initial Vital Signs Temperature 97.1 F 02/28/22 20:11 Pulse Rate 92 H 02/28/22 20:11 Respiratory Rate 18 02/28/22 20:11 Blood Pressure 146/68 02/28/22 20:11 O2 Sat by Pulse Oximetry 100 02/28/22 20:11 Pain Scale Pain Intensity 8 - Physical Exam General Appearance: no apparent distress, alert Eye Exam: PERRL/EOMI, eyes nml inspection Ears, Nose, Throat Exam: normal ENT inspection, TMs normal, pharynx normal, moist mucous membranes Neck Exam: normal inspection, non-tender, supple, full range of motion Respiratory Exam: normal breath sounds, lungs clear, airway intact, No respiratory distress Cardiovascular Exam: regular rate/rhythm, normal heart sounds, normal peripheral pulses Gastrointestinal/Abdomen Exam: soft, normal bowel sounds, No tenderness, No mass Pelvic Exam: other (Tenderness palpation at left hip over the lateral aspect. Overlying soft tissue intact. Patient also tender at left ischial tuberosity and coccyx region. Patient does have some pain at her left ankle however patient is ambulatory.) Back Exam: normal inspection, normal range of motion, No CVA tenderness, No vertebral tenderness Extremity Exam: normal inspection, normal range of motion, pelvis stable, other (Involved left lower extremity is neurovascular intact distally. Compartments are soft. Some pain at the lateral aspect of left ankle. Overlying soft tissue intact. Patient is ambulatory.) Neurologic Exam: alert, oriented x 3, cooperative, normal mood/affect, nml cerebellar function, nml station & gait, sensation nml, No motor deficits Skin Exam: normal color, warm, dry, No rash Lymphatic Exam: No adenopathy SpO2 Interpretation: normal SpO2: 100 O2 Delivery: Room Air - Course Nursing assessment & vital signs reviewed: Yes - Radiology Exams Ankle X-ray Interpretation: Interpreted by me (No fracture dislocations. Calcified vessels. No soft tissue abnormalities) - CT Exams Pelvis CT Interpretation: Tele-radiologist Report (No comps. Old distal sacral fracture and moderate diffuse atherosclerotic disease. No acute fracture.) Ordered Tests: Active Orders 24 hr Category Date Time Status ANKLE (3 VIEWS) Stat Exams 02/28/22 21:25 Taken PELVIS WITHOUT CONTRAST [CT] Stat Exams 02/28/22 20:49 Taken Medication Summary Discontinued Medications Generic Name Dose Route Start Last Admin Trade Name Buddy PRN Reason Stop Dose Admin Morphine Sulfate 4 mg 02/28/22 21:05 02/28/22 21:10 Morphine Sulfate 4 Mg/Ml Injection IM 02/28/22 21:06 4 mg STAT ONE Administration Morphine Sulfate Confirm 02/28/22 21:08 Morphine Sulfate 4 Mg/Ml Injection Administered 02/28/22 21:09 Dose 4 mg .ROUTE .STK-MED ONE - Progress Progress: improved Progress Note: Patient reassessed. She is comfortable. Patient has end-stage renal disease. Patient given morphine IM for pain control. We ordered a CT scan to evaluate the toxic ischial tuberosity and left hip. X-ray ordered for left ankle. Results pending. Ankle x-ray negative for fracture dislocation. No soft tissue abnormalities. Portions of this note were created with voice recognition technology. There may be grammatical, spelling, punctuation or sound alike errors 02/28/22 21:14 02/28/22 22:26 Counseled pt/family regarding: diagnosis, need for follow-up, rad results - Departure Departure Disposition: Home Clinical Impression: Fall, Atherosclerotic disease, Ankle sprain, Contusion, hip Condition: Stable Critical Care Time: No Referrals: FIOR DASILVA [Primary Care Provider] - Follow up/PCP as directed Additional Instructions: Discharge/Care Plan ANALY LIGHT was seen on 02/28/22 in the Emergency Room. The patient was counseled regarding Diagnosis,Lab results, Imaging studies, need for follow up and when to return to the Emergency Room. Prescriptions given: Discharge Note I have spoken with the patient and/or caregivers. I have explained the patient's condition, diagnosis and treatment plan based on the information available to me at this time. I have answered the patient's and/or caregiver's questions and addressed any concerns. The patient and/or caregivers have as good understanding of the patient's diagnosis, condition and treatment plan as can be expected at this point. The vital signs have been stable. The patient's condition is stable and appropriate for discharge from the emergency department. The patient will pursue further outpatient evaluation with the primary care physician or other designated or consulting physician as outlined in the discharge instructions. The patient and/or caregivers are agreeable to this plan of care and follow-up instructions have been explained in detail. The patient and/or caregivers have received these instruction. The patient/and or caregivers are aware that any significant change in condition or worsening of symptoms should prompt an immediate return to this or the closest emergency department or call 911.
[2022-02-28 22:31] VITALS: BP 124/75; PULSE 80
--- NOTE | 2022-03-01 08:57 | XRAY ---
Indication: Pain following fall. Comparison: None 3 view left ankle demonstrates mild anterolateral soft tissue swelling, osteopenia, old fracture base 5th metatarsal, and extensive vascular calcifications. Minimal widened lateral talotibial articulation concerning for underlying ligamentous injury. No other bony, articular, or soft tissue abnormalities.
--- NOTE | 2022-03-01 09:01 | XRAY ---
Indication: Left hip and sacral/coccyx pain following fall. Multiple contiguous axial images obtained through the pelvis with special attention to the osseous structures. Comparison: None Minimally displaced fracture distal sacrum of uncertain chronicity. Minimal degenerative vacuum phenomena both SI joints. Both hips are intact with minimal weightbearing degenerative joint space loss. Extensive scattered vascular calcifications. Visualized colon demonstrates intraluminal radiopacities either ingested barium or medication/bismuth. No ventral or inguinal hernias. Remaining visualized noncontrasted soft tissues are unremarkable. Impression: Distal sacral fracture of uncertain chronicity. Degenerative changes of both SI joints and extensive scattered vascular calcifications.
== END 2022-02-28 22:31 | disposition home or self-care (01) ==
LOC: ED 20:05
DX: S93.402A Sprain of unspecified ligament of left ankle, initial encounter (principal); S70.02XA Contusion of left hip, initial encounter; W10.1XXA Fall (on)(from) sidewalk curb, initial encounter; I70.90 Unspecified atherosclerosis; M25.572 Pain in left ankle and joints of left foot; M25.552 Pain in left hip; M53.3 Sacrococcygeal disorders, not elsewhere classified; E11.22 Type 2 diabetes mellitus with diabetic chronic kidney disease; I12.0 Hypertensive chronic kidney disease with stage 5 chronic kidney disease or end stage renal disease; N18.6 End stage renal disease; Z99.2 Dependence on renal dialysis; Z72.0 Tobacco use; Z79.84 Long term (current) use of oral hypoglycemic drugs; Z79.899 Other long term (current) drug therapy; Z28.310 Unvaccinated for COVID-19
CPT/HCPCS: 72192; 73610; 96372; 99283; J2270

== ENCOUNTER 2022-03-03 23:30 | Emergency (ER) | payer MEDICARE ==
--- NOTE | 2022-03-04 00:25 | ERPHSYRPT ---
- History of Present Illness Time Seen by Provider: 03/04/22 00:15 Source: patient, family Exam Limitations: no limitations Patient Subjective Stated Complaint: pt states "I haven't been able to have bowel movement since Sunday." Triage Nursing Assessment: pt ambulated into the er; pt is axo x4; c/o constipation; pt states 3/10 pain to rectum; active bowel sounds in all quads; abd soft, round, nontender; pt denies N/V; vital wnl; skin PDW Physician History: This is a 51-year-old white female patient of Dr. Nieto who presents with constipation for 4 days. Patient has end-stage renal disease and is on hemodialysis. Her dialysis days are Sunday. She has not tried anything [id number] because she was unsure what she could take or should not take since she is a dialysis patient. Patient has no shortness of breath. She has no chest pain. Timing/Duration: day(s) (4) Activities at Onset: none Severity of Dyspnea-Max: none Severity of Dyspnea-Current: none Possible Cause: occasional episodes Associated Symptoms: denies symptoms Allergies/Adverse Reactions: DAVID Inhibitors Allergy (Verified 03/04/22 00:09) hydralazine Allergy (Verified 03/04/22 00:09) Rash Penicillins Allergy (Verified 03/04/22 00:09) baby oil Allergy (Uncoded 03/04/22 00:09) Home Medications: Atropine Sulfate [Atropine Sulfate Eye Drops] 1 drop OP BID 03/10/19 [History] Bimatoprost 0.01% [Lumigan 0.01% 2.5 ml] 1 drop OP UD 03/10/19 [History] Brimonidine Tartrate/Timolol [Combigan 0.2%-0.5% Eye Drops] 1 drop OP UD 03/10/19 [History] Dorzolamide HCl 1 drop OP TID 03/10/19 [History] acetaZOLAMIDE [Acetazolamide ER] 500 mg PO BID 03/10/19 [History] prednisoLONE acetate [Prednisolone Acetate] 1 drop OP Q2H 03/10/19 [History] Glipizide 5 mg [Glucotrol 5 MG] 1 ea DAILY 10/24/20 [History] Hx Tetanus, Diphtheria Vaccination/Date Given: Yes Hx Influenza Vaccination/Date Given: No Hx Pneumococcal Vaccination/Date Given: No Travel Risk - International Travel Have you traveled outside of the country in past 3 weeks: No - Coronavirus Screening Are you exhibiting any of the following symptoms?: No Close contact with a COVID-19 positive Pt in past 14-21 Days: No - Vaccine Status Have you recieved a Covid-19 vaccination: No - Review of Systems Constitutional: No Symptoms Eyes: No Symptoms Ears, Nose, & Throat: No Symptoms Respiratory: No Symptoms Cardiac: No Symptoms Abdominal/Gastrointestinal: Constipation, No Abdominal Pain, No Nausea, No Vomiting, No Diarrhea Genitourinary Symptoms: No Symptoms Musculoskeletal: No Symptoms Skin: No Symptoms Neurological: No Symptoms Psychological: No Symptoms Endocrine: No Symptoms Hematologic/Lymphatic: No Symptoms Immunological/Allergic: No Symptoms All Other Systems: Reviewed and Negative - Past Medical History Pertinent Past Medical History: Yes Neurological History: Peripheral Neuropathy ENT History: Other Cardiac History: Hypertension Respiratory History: No Pertinent History Endocrine Medical History: Diabetes Type II Musculoskeletal History: No Pertinent History GI Medical History: No Pertinent History History: Dialysis, Renal Disease Psycho-Social History: No Pertinent History Female Reproductive Disorders: No Pertinent History Other Medical History: legally blind - Past Surgical History Past Surgical History: Yes Neuro Surgical History: No Pertinent History Cardiac: No Pertinent History Respiratory: No Pertinent History Gastrointestinal: No Pertinent History Genitourinary: No Pertinent History Musculoskeletal: No Pertinent History Female Surgical History: No Pertinent History Other Surgical History: fistula, balloon procedure to fistula rt arm today - Social History Smoking Status: Current every day smoker How long have you smoked: 40 years Exposure to second hand smoke: Yes Drug Use: none Patient Lives Alone: No - Nursing Vital Signs Nursing Vital Signs: Initial Vital Signs Temperature 97.7 F 03/04/22 00:12 Pulse Rate 83 03/04/22 00:12 Respiratory Rate 14 03/04/22 00:12 Blood Pressure 143/64 03/04/22 00:12 O2 Sat by Pulse Oximetry 98 03/04/22 00:12 Pain Scale Pain Intensity 3 - Physical Exam General Appearance: no apparent distress, alert, anxiety, obese Eye Exam: PERRL/EOMI, eyes nml inspection Ears, Nose, Throat Exam: hearing grossly normal, normal ENT inspection, normal pharynx Neck Exam: normal inspection, non-tender, supple, full range of motion Respiratory Exam: airway intact, No chest tenderness, No respiratory distress Abdominal/Gastrointestinal Exam: soft, normal bowel sounds, No tenderness, No guarding Rectal Exam: not done Extremity Exam: non-tender, normal range of motion, normal inspection Neurologic Exam: alert, oriented x 3, cooperative, systems eng II-XII nml as tested, normal mood/affect, nml cerebellar function, nml station & gait, sensation nml Skin Exam: normal color, warm, dry Lymphatic Exam: No adenopathy SpO2 Interpretation: normal SpO2: 98 O2 Delivery: Room Air - Course Nursing assessment & vital signs reviewed: Yes Ordered Tests: Active Orders 24 hr Category Date Time Status KUB Stat Exams 03/04/22 00:21 Ordered - Progress Progress: improved Air Movement: good Progress Note: 03/04/22 01:20 A KUB shows a significant amount of colonic stool mixed with contrast still present. Blood Culture(s) Obtained: No Antibiotics given: No Counseled pt/family regarding: diagnosis, need for follow-up, rad results - Departure Departure Disposition: Home Clinical Impression: Constipation Condition: Stable Critical Care Time: No Referrals: FIOR NIETO [Primary Care Provider] - Follow up/PCP as directed Additional Instructions: Performed the following over the weekend: Drink plenty of fluids, increase fiber in your diet, increase physical activity. Give your self a fleets enema rectally later this morning. Consume 2 prunes per day on Sunday, Sunday and Sunday. Take Colace 100 mg orally ([id number]) 3 times a day on Sunday and Sunday. MiraLAX as directed on [id number] package daily on Sunday and Sunday mornings. Call the office of your engineering program manager on 03/06/2022, to obtain a recommended constipation relief protocol on patients receiving dialysis.
[2022-03-04 01:31] VITALS: BP 116/82; PULSE 77; O2SAT 97
--- NOTE | 2022-03-04 08:51 | XRAY ---
Indication: Constipation. Comparison: None KUB nonacute and nonobstructed with mild diffuse fecal stasis greatest in rectum. Radiopacities throughout left hemicolon/rectum either ingested medication, bismuth, or barium. Extensive scattered vascular calcifications. Solid organs unremarkable. Osseous structures intact with mild osteopenia, degenerative changes, and minimal double curvature scoliosis. Impression: Mild fecal stasis. Incidental chronic findings.
== END 2022-03-04 01:38 | disposition home or self-care (01) ==
LOC: ED 23:30
DX: K59.00 Constipation, unspecified (principal); I12.0 Hypertensive chronic kidney disease with stage 5 chronic kidney disease or end stage renal disease; E11.22 Type 2 diabetes mellitus with diabetic chronic kidney disease; N18.6 End stage renal disease; E11.42 Type 2 diabetes mellitus with diabetic polyneuropathy; Z99.2 Dependence on renal dialysis; Z72.0 Tobacco use; Z79.84 Long term (current) use of oral hypoglycemic drugs; Z79.899 Other long term (current) drug therapy; Z28.310 Unvaccinated for COVID-19
CPT/HCPCS: 74018; 99282

== ENCOUNTER 2023-03-16 13:43 | Emergency (ER) | payer OTHER ==
[2023-03-16 14:30] VITALS: BP 78/45; PULSE 81; RESP 17; TEMP 97; O2SAT 100
--- NOTE | 2023-03-16 15:03 | ERPHSYRPT ---
- History of Present Illness Source: patient, other () Exam Limitations: no limitations Patient Subjective Stated Complaint: Pts spouse brought pt to ED due to pt being lethargic at home, lightheaded, weak and headache. Pt reports she left dialysis early due to "feeling like crap". Called the dialysis clinic to see if they came back if they would take her bp and they said no so pts spouse brought her to ED. Triage Nursing Assessment: Pt alert and oriented x3. Respirations easy/nonlabored. Skin w/p/d. Lethargic in wheelchair, transferred with assist x1, more alert after getting into bed. Andrey, school bus technician attempted to place IV during triage when pt was found to be hypotensive, pt refused IV and fluids at this time. Pt also mentioned she used to be on medication to keep bp up but took herself off of med. Physician History: Patient is a 53-year-old female who presents with hypotension status post dialysis today. Patient states that hypotension has been a problem with her dialysis as of late, and she did not get a full dialysis treatment today. She denies fever, cough, shortness of breath, chest pain, abdominal pain, and any rashes. Patient states that her fistula site is good without erythema or pain. Nursing states the patient would not let them start an IV at this time. Timing/Duration: today Severity: moderate Modifying Factors: Improves With: nothing Associated Symptoms: denies symptoms Allergies/Adverse Reactions: DAVID Inhibitors Allergy (Verified 03/16/23 14:19) hydralazine Allergy (Verified 03/16/23 14:19) Rash Penicillins Allergy (Verified 03/16/23 14:19) baby oil Allergy (Uncoded 03/16/23 14:19) Home Medications: Brimonidine Tartrate/Timolol [Combigan 0.2%-0.5% Eye Drops] 1 drop OP BID 03/10/19 [History] acetaZOLAMIDE [Acetazolamide ER] 500 mg PO BID 03/10/19 [History] Glipizide 5 mg [Glucotrol 5 MG] 1 ea PO DAILY 10/24/20 [History] Metoprolol Succinate 50 mg [Toprol Xl 50 MG] 50 mg PO DAILY 03/16/23 [History] Verapamil HCl 40 mg PO DAILY 03/16/23 [History] Hx Tetanus, Diphtheria Vaccination/Date Given: Yes Hx Influenza Vaccination/Date Given: No Hx Pneumococcal Vaccination/Date Given: No Travel Risk - International Travel Have you traveled outside of the country in past 3 weeks: No - Coronavirus Screening Are you exhibiting any of the following symptoms?: No Close contact with a COVID-19 positive Pt in past 14-21 Days: No - Vaccine Status Have you recieved a Covid-19 vaccination: No - Review of Systems Constitutional: No Symptoms Eyes: No Symptoms Ears, Nose, & Throat: No Symptoms Respiratory: No Symptoms Cardiac: No Symptoms Abdominal/Gastrointestinal: No Symptoms Genitourinary Symptoms: No Symptoms Musculoskeletal: No Symptoms Skin: No Symptoms Neurological: No Symptoms Psychological: No Symptoms Endocrine: No Symptoms Hematologic/Lymphatic: No Symptoms Immunological/Allergic: No Symptoms - Past Medical History Pertinent Past Medical History: Yes Neurological History: Peripheral Neuropathy ENT History: Other Cardiac History: Hypertension Respiratory History: No Pertinent History Endocrine Medical History: Diabetes Type II Musculoskeletal History: No Pertinent History GI Medical History: No Pertinent History History: Dialysis, Renal Disease Psycho-Social History: No Pertinent History Female Reproductive Disorders: No Pertinent History Other Medical History: legally blind - Past Surgical History Past Surgical History: Yes Neuro Surgical History: No Pertinent History Cardiac: No Pertinent History Respiratory: No Pertinent History Gastrointestinal: No Pertinent History Genitourinary: No Pertinent History Musculoskeletal: No Pertinent History Female Surgical History: No Pertinent History Other Surgical History: fistula, balloon procedure to fistula rt arm - Social History Smoking Status: Current every day smoker How long have you smoked: 40 years Exposure to second hand smoke: Yes Drug Use: none Patient Lives Alone: No - Nursing Vital Signs Nursing Vital Signs: Initial Vital Signs Temperature 97 F 03/16/23 14:11 Pulse Rate 81 03/16/23 14:11 Respiratory Rate 17 03/16/23 14:11 Blood Pressure 78/45 03/16/23 14:11 O2 Sat by Pulse Oximetry 100 03/16/23 14:11 Pain Scale Pain Intensity 1 Hypotension noted - Physical Exam General Appearance: no apparent distress (White female in no apparent distress) Eye Exam: PERRL/EOMI, eyes nml inspection Ears, Nose, Throat Exam: normal ENT inspection, TMs normal, pharynx normal, moist mucous membranes Neck Exam: normal inspection, non-tender, supple, full range of motion, No meni ngismus, No Brudzinski, No Kernig's Respiratory Exam: normal breath sounds, lungs clear, airway intact, No respiratory distress Cardiovascular Exam: regular rate/rhythm, other (2/6 systolic ejection murmur noted) Gastrointestinal/Abdomen Exam: soft (Obese/soft/nontender to palpation) Back Exam: normal inspection (No T or L-spine tenderness palpation noted) Extremity Exam: other (Fistula right upper extremity with good shunt thrill/no obvious erythema/good radial pulse, distal sensation, and capillary return of all digits) Neurologic Exam: alert, oriented x 3, cooperative, unit assistant II-XII nml as tested, normal mood/affect, sensation nml Skin Exam: normal color, warm, dry, No rash Lymphatic Exam: No adenopathy SpO2 Interpretation: normal SpO2: 100 O2 Delivery: Room Air - Course Nursing assessment & vital signs reviewed: Yes - Progress Progress Note: 03/16/23 15:03 Nursing note and vital signs reviewed. No food or housing insecurities noted. Additional history per . Patient refuses any lab work or IV access at this time. I discussed the situation with the patient and her and stated that we cannot properly evaluate the patient without lab work or IV access for potential very mild hydration due to renal failure. After private discussion, patient and decided to leave the ER AMA. Risk of sepsis explained to patient/. Patient was afebrile but was unable to rule out sepsis without lab work. Patien t hypotensive upon signing out AMA. Patient was alert and oriented x3 during entire visit. Counseled pt/family regarding: need for follow-up Medical Desision Making - Independent Historian Additional History obtained from: Spouse - Departure Departure Disposition: AMA Clinical Impression: Hypotension, Left against medical advice Condition: Fair Critical Care Time: No Referrals: FIOR DASILVA [Primary Care Provider] - Follow up/PCP as directed
== END 2023-03-16 14:55 | disposition left against medical advice (07) ==
LOC: ED 13:43
DX: I95.9 Hypotension, unspecified (principal); I12.0 Hypertensive chronic kidney disease with stage 5 chronic kidney disease or end stage renal disease; E11.22 Type 2 diabetes mellitus with diabetic chronic kidney disease; N18.6 End stage renal disease; E11.42 Type 2 diabetes mellitus with diabetic polyneuropathy; Z79.84 Long term (current) use of oral hypoglycemic drugs; Z79.899 Other long term (current) drug therapy; Z28.310 Unvaccinated for COVID-19; Z72.0 Tobacco use; Z99.2 Dependence on renal dialysis
CPT/HCPCS: 99281

== ENCOUNTER 2023-04-15 00:37 | Emergency (ER) | payer MEDICARE ==
[2023-04-15] MEDS ORDERED: solu-MEDROL 125 MG, Sterile H2O 10 ml 2 ML IV ONE ×2 (00:51)
[2023-04-15] MEDS ORDERED: DUONEB 0.5-3 MG/3 ml Neb IH ONE ×2 (00:51)
--- NOTE | 2023-04-15 00:55 | ERPHSYRPT ---
- History of Present Illness Time Seen by Provider: 04/15/23 00:44 Source: patient, family Exam Limitations: no limitations Physician History: 52 years old female with history of COPD, tobacco abuse hypertension, hyperlipidemia, diabetes mellitus, ESRD on dialysis 3 times a week presented to the ER with chief complaint of increasing cough and difficulty breathing. Pat ient reported started 2 days ago as a sinus congestion and gradually got worse. Patient reports getting short of breath with activity and during bouts of coughing. Coughing up clear to yellow sputum small in amount. Denies any chest pain or palpitations. No fever or chills reported. Positive sick contact with other family member. Allergies/Adverse Reactions: DAVID Inhibitors Allergy (Verified 03/16/23 14:19) hydralazine Allergy (Verified 03/16/23 14:19) Rash Penicillins Allergy (Verified 03/16/23 14:19) baby oil Allergy (Uncoded 03/16/23 14:19) Home Medications: Brimonidine Tartrate/Timolol [Combigan 0.2%-0.5% Eye Drops] 1 drop OP BID 03/10/19 [History] acetaZOLAMIDE [Acetazolamide ER] 500 mg PO BID 03/10/19 [History] Glipizide 5 mg [Glucotrol 5 MG] 1 ea PO DAILY 10/24/20 [History] Metoprolol Succinate 50 mg [Toprol Xl 50 MG] 50 mg PO DAILY 03/16/23 [History] Verapamil HCl 40 mg PO DAILY 03/16/23 [History] Hx Tetanus, Diphtheria Vaccination/Date Given: Yes Hx Influenza Vaccination/Date Given: No Hx Pneumococcal Vaccination/Date Given: No Travel Risk - Vaccine Status Have you recieved a Covid-19 vaccination: No - Review of Systems Constitutional: Fatigue Eyes: No Symptoms Ears, Nose, & Throat: Nose Congestion, Throat Pain Respiratory: Cough, Dyspnea Cardiac: Orthopnea Abdominal/Gastrointestinal: No Symptoms Genitourinary Symptoms: No Symptoms Musculoskeletal: Arthralgias Skin: No Symptoms Neurological: No Symptoms Hematologic/Lymphatic: No Symptoms Immunological/Allergic: No Symptoms - Past Medical History Pertinent Past Medical History: Yes Neurological History: Peripheral Neuropathy ENT History: Other Cardiac History: Hypertension Respiratory History: No Pertinent History Endocrine Medical History: Diabetes Type II Musculoskeletal History: No Pertinent History GI Medical History: No Pertinent History History: Dialysis, Renal Disease Psycho-Social History: No Pertinent History Female Reproductive Disorders: No Pertinent History Other Medical History: legally blind - Past Surgical History Past Surgical History: Yes Neuro Surgical History: No Pertinent History Cardiac: No Pertinent History Respiratory: No Pertinent History Gastrointestinal: No Pertinent History Genitourinary: No Pertinent History Musculoskeletal: No Pertinent History Female Surgical History: No Pertinent History Other Surgical History: fistula, balloon procedure to fistula rt arm - Social History Smoking Status: Current every day smoker How long have you smoked: 40 years Exposure to second hand smoke: Yes Drug Use: none Patient Lives Alone: No - Nursing Vital Signs Nursing Vital Signs: Initial Vital Signs Temperature 97.1 F 04/15/23 00:40 Pulse Rate 80 04/15/23 00:40 Respiratory Rate 22 04/15/23 00:40 Blood Pressure 154/85 04/15/23 00:40 O2 Sat by Pulse Oximetry 96 04/15/23 00:40 Pain Scale Pain Intensity 0 - Physical Exam General Appearance: no apparent distress, alert Eye Exam: PERRL/EOMI Ears, Nose, Throat Exam: nasal congestion, pharyngeal erythema Neck Exam: normal inspection, supple, full range of motion Respiratory Exam: diminished breath sounds, rhonchi, wheezing Cardiovascular/Chest Exam: normal heart sounds, regular rate/rhythm Abdominal/Gastrointestinal Exam: soft, normal bowel sounds, No tenderness Extremity Exam: non-tender, normal range of motion Neurologic Exam: alert, oriented x 3, cooperative, bi consultant II-XII nml as tested Skin Exam: normal color SpO2 Interpretation: normal SpO2: 94 O2 Delivery: Room Air - Course EKG Interpreted by Me: RATE (71), Sinus Rhythm, NORMAL AXIS, Q-wave, Non- specific ST Changes Ordered Tests: Active Orders 24 hr Category Date Time Status Liaison Inspection Laboratory Assistant STAT Care 04/15/23 00:51 Active EKG-ER Only STAT Care 04/15/23 00:51 Active IV Insertion STAT Care 04/15/23 00:51 Active Oxygen-ED Only Nasal Cannula 2 lpm Care 04/15/23 00:51 Active CHEST 1 VIEW (PORTABLE) Stat Exams 04/15/23 00:51 Taken CBC W DIFF Stat Lab 04/15/23 01:41 Completed CMP Stat Lab 04/15/23 01:41 Completed Lactic Acid Stat Lab 04/15/23 00:51 Ordered MAGNESIUM Stat Lab 04/15/23 01:41 Completed TROPONIN Q4H Lab 04/15/23 05:00 Ordered TROPONIN Q4H Lab 04/15/23 09:00 Ordered Respiratory Therapy Assessment DAILY RT 04/15/23 01:00 Active Medication Summary Discontinued Medications Generic Name Dose Route Start Last Admin Trade Name Freq PRN Reason Stop Dose Admin Albuterol/Ipratropium 3 ml 04/15/23 00:51 04/15/23 01:06 Ipratropium/Albuterol Sulfate 3 Ml Ampul.Neb IH 04/15/23 00:52 3 ml STAT ONE Administration Albuterol/Ipratropium Confirm 04/15/23 00:51 Ipratropium/Albuterol Sulfate 3 Ml Ampul.Neb Administered 04/15/23 00:52 Dose 3 ml IH .STK-MED ONE Methylprednisolone Sodium 0 mg 04/15/23 00:51 Succinate 125 mg/ Sterile IV 04/15/23 00:52 Water 2 ml STAT ONE Doxycycline Hyclate 100 mg 04/15/23 01:59 Doxycycline Hyclate 100 Mg Tablet PO 04/15/23 02:00 STAT ONE Patiromer 16.8 gm 04/15/23 03:00 Patiromer Calcium Sorbitex 8.4 Gm Powd.Pack PO 04/15/23 03:01 STAT STA Lab/Rad Data: Laboratory Result Diagrams 04/15/23 01:41 04/15/23 01:41 Laboratory Results 04/15/23 04/15/23 Range/Units 01:41 01:41 WBC 4.8 (4.0-10.5) x10^3/uL RBC 3.09 L (4.1-5.4) x10^6/uL Hgb 10.4 L (12.0-16.0) g/dL Hct 33.3 L (35-47) % MCV 107.8 H (78-100) fL MCH 33.7 H (26-32) pg MCHC 31.2 L (32-36) g/dL RDW 14.6 H (11.5-14.0) % Plt Count 144 L (150-450) x10^3/uL MPV 12.0 H (7.5-11.0) fL Gran % 77.6 H (36.0-66.0) % Immature Gran % (Auto) 0.4 (0.00-0.4) % Nucleat RBC Rel Count 0.0 (0.00-0.1) % Eos # (Auto) 0.22 (0-0.5) x10^3/uL Immature Gran # (Auto) 0.02 (0.00-0.03) x10^3u/L Absolute Lymphs (auto) 0.55 L (1.0-4.6) x10^3/uL Absolute Monos (auto) 0.26 (0.0-1.3) x10^3/uL Absolute Nucleated RBC 0.00 (0.00-0.01) x10^3u/L Lymphocytes % 11.4 L (24.0-44.0) % Monocytes % 5.4 (0.0-12.0) % Eosinophils % 4.6 (0.00-5.0) % Basophils % 0.6 (0.0-0.4) % Absolute Granulocytes 3.73 (1.4-6.9) x10^3/uL Basophils # 0.03 (0-0.4) x10^3/uL Sodium 135 L (137-145) mmol/L Potassium 5.7 H (3.5-5.1) mmol/L Chloride 90 L (98-107) mmol/L Carbon Dioxide 31 H (22-30) mmol/L Anion Gap 19.7 H (5-15) MEQ/L BUN 55 H (7-17) mg/dL Creatinine 8.17 H (0.52-1.04) mg/dL Estimated GFR 5.4 ML/MIN Glucose 163 H (74-106) mg/dL Calcium 9.2 (8.4-10.2) mg/dL Magnesium 2.3 (1.6-2.3) mg/dL Total Bilirubin 0.90 (0.2-1.3) mg/dL AST 41 H (14-36) U/L ALT 29 (0-35) U/L Alkaline Phosphatase 97 (38-126) U/L Serum Total Protein 7.1 (6.3-8.2) g/dL Albumin 4.0 (3.5-5.0) g/dL Slides for Path Review YES - Progress Progress: improved, re-examined Air Movement: good Progress Note: 04/15/23 03:05 56-year-old with history of ESRD on dialysis is evaluated for cough congestion symptoms for the last couple of days with a positive sick contact. Patient was having wheezing, given DuoNeb and Solu-Medrol, on reevaluation she is feeling much better and on room air maintaining saturation around 92 to 94%. As per patient her baseline oxygen saturation is around 90% normally. EKG is normal sinus rhythm with no acute ischemic changes. Patient has normal white count, stable H&H. Chemistries showed hyperkalemia of 5.7 but according to patient she is always around 5.5 and few days ago it was 6.1. She is advised to take diet with low potassium and given a dose of Veltassa here. Patient has dialysis tomorrow. Patient refused to have COVID test done. Patient is a hard stick and blood draw was not enough to obtain troponins and she is adamant about not being stuck again. She does understand that we cannot tell her cardiac status without checking troponins although her symptoms seem more of a infectious etiology. Chest x-ray showed right-sided airspace disease and given a dose of doxycycline. I believe patient has COPD exacerbation/bronchitis triggered by upper respiratory infections. I will continue with Doxy and short course of steroid to go home and recommended taking neb treatments. Discussed signs symptoms of worsening needing return to ER which she seems understanding. Stable for discharge. Blood Culture(s) Obtained: Yes Antibiotics given: Yes Counseled pt/family regarding: lab results, diagnosis, need for follow-up, marcelino henry Medical Desision Making - Independent Historian Additional History obtained from: Child - Diagnostic Testing Diagnostic test were ordered, analyzed, and reviewed by me: Yes Radiological Interpretation: Interpreted by me, Reviewed by me - Risk of complications The pt has a mod risk of morbidity or mortality based on: Need for prescription drug management - Departure Departure Disposition: Home Clinical Impression: COPD exacerbation, Hyperkalemia Condition: Stable Critical Care Time: No Referrals: FIOR DASILVA [Primary Care Provider] - Follow up with PCP 1 day Instructions: Chronic Obstructive Pulmonary Disease, Exacerbation of COPD (DC) Additional Instructions: Take neb treatments every 4-6 hour as recommended. Take low potassium diet. Keep appointment for primary care and dialysis as scheduled. Return to ER for w orsening cough or difficulty breathing or if having fever chills etc. Prescriptions: Prednisone 20 mg [Deltasone 20 mg] 40 mg PO DAILY 5 Days #10 tablet Albuterol/Ipratropium 3ml Neb* [DUONEB 0.5-3 MG/3 ml Neb] 3 ml IH Q4-6HPRN PRN 7 Days #60 amp PRN Reason: Shortness Of Breath/Wheezing Doxycycline Hyclate 100 mg [Vibramycin 100 MG] 100 mg PO BID #14 tab
[2023-04-15 00:59] VITALS: BP 154/85; RESP 22; TEMP 97.1
[2023-04-15 01:43] LABS: Absolute Neutrophil Ct (ANC) 3.73 x10^3/uL (1.4-6.9); BASOPHIL % 0.6 % (0.0-0.4); Basophil (Absolute #) 0.03 x10^3/uL (0-0.4); Eosinophil % 4.6 % (0.00-5.0); Eosinophil (Absolute #) 0.22 x10^3/uL (0-0.5); Hematocrit 33.3 % (35-47); Hemoglobin 10.4 g/dL (12.0-16.0); IMMATURE GRAN # 0.02 x10^3u/L (0.00-0.03); IMMATURE GRAN % 0.4 % (0.00-0.4); Lymphocyte (Absolute #) 0.55 x10^3/uL (1.0-4.6); Lymphocytes % 11.4 % (24.0-44.0); Mean Cell Volume 107.8 fL (78-100); Mean Corpuscular Hemoglobin 33.7 pg (26-32); Mean Corpuscular Hgb Concent. 31.2 g/dL (32-36); Monocyte (Absolute #) 0.26 x10^3/uL (0.0-1.3); Monocytes % 5.4 % (0.0-12.0); Neutrophil % 77.6 % (36.0-66.0); Platelet Count 144 x10^3/uL (150-450); Red Blood Count 3.09 x10^6/uL (4.1-5.4); Red Cell Distribution Width 14.6 % (11.5-14.0); White Blood Count 4.8 x10^3/uL (4.0-10.5)
[2023-04-15] MEDS ORDERED: Vibramycin 100 MG PO ONE (01:59)
[2023-04-15 02:00] LABS: ANION GAP 19.7 MEQ/L (5-15); BILIRUBIN,TOTAL 0.9 mg/dL (0.2-1.3); Calcium 9.2 mg/dL (8.4-10.2); Creatinine 1 8.17 mg/dL (0.52-1.04); EST GLOMERULAR FILTRATION RATE 5.4 ML/MIN; MAGNESIUM 2.3 mg/dL (1.6-2.3); Potassium 5.7 mmol/L (3.5-5.1); Total Protein 7.1 g/dL (6.3-8.2)
[2023-04-15 02:53] LABS: Slide Review 1 YES
[2023-04-15] MEDS ORDERED: VELTASSA PO STA (03:00)
[2023-04-15] MEDS ORDERED: VELTASSA PO ONE (03:09)
[2023-04-15] MEDS ORDERED: Sterile H2O 10 ml IJ ONE (03:09)
[2023-04-15] MEDS ORDERED: solu-MEDROL ONE (03:09)
[2023-04-15] MEDS ORDERED: Vibramycin 100 MG ONE (03:09)
[2023-04-15 03:10] VITALS: O2SAT 94
[2023-04-15 03:34] VITALS: PULSE 69
--- NOTE | 2023-04-15 07:42 | XRAY ---
Indication: Short of breath and cough. Comparison: February 18, 2022 Portable chest demonstrates new diffuse right lung hazy interstitial alveolar opacities without consolidation/large effusion. Stable left upper extremity stent grafts. Remaining heart and left lung unremarkable. Bony thorax intact.
== END 2023-04-15 03:47 | disposition home or self-care (01) ==
LOC: ED 00:37
DX: J44.1 Chronic obstructive pulmonary disease with (acute) exacerbation (principal); E87.5 Hyperkalemia; R05.9 Cough, unspecified; R06.02 Shortness of breath; I12.0 Hypertensive chronic kidney disease with stage 5 chronic kidney disease or end stage renal disease; E11.22 Type 2 diabetes mellitus with diabetic chronic kidney disease; N18.6 End stage renal disease; E11.42 Type 2 diabetes mellitus with diabetic polyneuropathy; E78.5 Hyperlipidemia, unspecified; Z79.84 Long term (current) use of oral hypoglycemic drugs; Z79.899 Other long term (current) drug therapy; Z28.310 Unvaccinated for COVID-19; Z72.0 Tobacco use; Z99.2 Dependence on renal dialysis
CPT/HCPCS: 36415; 71045; 80053; 83735; 85025; 93005; 93041; 94640; 96374; 99284; J2930; A9270-GY

== ENCOUNTER 2023-08-26 18:55 | Emergency (ER) | payer MEDICARE ==
[2023-08-26 19:13] VITALS: TEMP 97
--- NOTE | 2023-08-26 19:14 | ERPHSYRPT ---
- History of Present Illness Time Seen by Provider: 08/26/23 19:02 Source: patient Exam Limitations: no limitations Physician History: Pt states she noticed pus coming from under her left ring fingernail today; denies fever, cough, chills. Allergies/Adverse Reactions: DAVID Inhibitors Allergy (Verified 08/26/23 19:00) hydralazine Allergy (Verified 08/26/23 19:00) Rash Penicillins Allergy (Verified 08/26/23 19:00) baby oil Allergy (Uncoded 08/26/23 19:00) Home Medications: Brimonidine Tartrate/Timolol [Combigan 0.2%-0.5% Eye Drops] 1 drop OP BID 03/10/19 [History] acetaZOLAMIDE [Acetazolamide ER] 500 mg PO BID 03/10/19 [History] Glipizide 5 mg [Glucotrol 5 MG] 1 ea PO DAILY 10/24/20 [History] Metoprolol Succinate 50 mg [Toprol Xl 50 MG] 50 mg PO DAILY 03/16/23 [History] Verapamil HCl 40 mg PO DAILY 03/16/23 [History] Hx Tetanus, Diphtheria Vaccination/Date Given: Yes Hx Influenza Vaccination/Date Given: No Hx Pneumococcal Vaccination/Date Given: No - Review of Systems Constitutional: No Fever, No Chills Ears, Nose, & Throat: No Ear Pain, No Throat Pain Respiratory: No Dyspnea Cardiac: No Chest Pain Abdominal/Gastrointestinal: No Nausea, No Vomiting Skin: Other (tenderness & edema of left ring finger tip with pus coming from under the nail today) Neurological: No Headache - Past Medical History Pertinent Past Medical History: Yes Neurological History: Peripheral Neuropathy ENT History: Other Cardiac History: Hypertension Respiratory History: No Pertinent History Endocrine Medical History: Diabetes Type II Musculoskeletal History: No Pertinent History GI Medical History: No Pertinent History History: Dialysis, Renal Disease Psycho-Social History: No Pertinent History Female Reproductive Disorders: No Pertinent History Other Medical History: legally blind - Past Surgical History Past Surgical History: Yes Neuro Surgical History: No Pertinent History Cardiac: No Pertinent History Respiratory: No Pertinent History Gastrointestinal: No Pertinent History Genitourinary: No Pertinent History Musculoskeletal: No Pertinent History Female Surgical History: No Pertinent History Other Surgical History: fistula, balloon procedure to fistula rt arm - Social History Smoking Status: Current every day smoker How long have you smoked: 40 years Exposure to second hand smoke: Yes Drug Use: none Patient Lives Alone: No - Physical Exam General Appearance: alert Eyes, Ears, Nose, Throat Exam: TMs normal, pharynx normal, moist mucous membranes Neck Exam: normal inspection Cardiovascular/Respiratory Exam: normal breath sounds, heart sounds normal Hand Exam: swelling (mild edema & tenderness of left ring finger tip; mild erythema of fingers & thumb(ongoing for the past month)) - Progress Progress: unchanged Counseled pt/family regarding: diagnosis, need for follow-up - Departure Departure Disposition: Home Clinical Impression: Cellulitis of left ring finger Condition: Stable Critical Care Time: No Referrals: FIOR DASILVA [Primary Care Provider] - Follow up/PCP as directed Instructions: Cellulitis (Skin Infection), Adult (DC) Additional Instructions: Follow up with private doctor tomorrow. Elevate left hand above heart level for 24 hours. Prescriptions: clindamycin HCL [Clindamycin HCl] 300 mg PO Q6H #40 cap
[2023-08-26] MEDS ORDERED: CLEOCIN 150 MG CAPSULE ONE (19:25)
[2023-08-26] MEDS: CLEOCIN 150 MG CAPSULE PO ONE ×3 (19:31→19:33)
[2023-08-26 19:37] VITALS: BP 98/71; PULSE 81; RESP 16; O2SAT 93
== END 2023-08-26 20:16 | disposition home or self-care (01) ==
LOC: ED 18:55
DX: L03.012 Cellulitis of left finger (principal); I10 Essential (primary) hypertension; E11.42 Type 2 diabetes mellitus with diabetic polyneuropathy; Z79.84 Long term (current) use of oral hypoglycemic drugs; Z79.899 Other long term (current) drug therapy; Z72.0 Tobacco use
CPT/HCPCS: 99282; A9270-GY

== ENCOUNTER 2023-09-30 20:11 | Emergency (ER) | payer MEDICARE ==
[2023-09-30] MEDS ORDERED: DUONEB 0.5-3 MG/3 ml Neb IH ONE (20:22)
[2023-09-30] MEDS: DUONEB 0.5-3 MG/3 ml Neb IH ONE (20:25)
--- NOTE | 2023-09-30 20:30 | ERPHSYRPT ---
- History of Present Illness Time Seen by Provider: 09/30/23 20:20 Source: patient Exam Limitations: no limitations Physician History: 53yo f presents w/ sob that has been worsening over the past week. Pt reports that she has had URI sx for the past 2 wks, was given a steroid shot by her PCP last week that helped for a few days but her sx returned. Pt reports her son has an unknown URI currently. Pt reports strong non-productive cough for the past 3- 4d. Pt reports some pain w/ deep inspiration. 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 Pt reports significant hx of anxiety. Timing/Duration: today Activities at Onset: none Severity of Dyspnea-Max: moderate Severity of Dyspnea-Current: mild Possible Cause: occasional episodes Modifying Factors: Improves With: activity Associated Symptoms: anxiety, cough, edema, leg swelling, No fever, No hemoptysis, No calf pain Allergies/Adverse Reactions: DAVID Inhibitors Allergy (Verified 08/26/23 19:00) hydralazine Allergy (Verified 08/26/23 19:00) Rash Iodinated Contrast Media Allergy (Verified 09/30/23 20:48) Penicillins Allergy (Verified 08/26/23 19:00) baby oil Allergy (Uncoded 08/26/23 19:00) Home Medications: Brimonidine Tartrate/Timolol [Combigan 0.2%-0.5% Eye Drops] 1 drop OP BID 03/10/19 [History] Glipizide 5 mg [Glucotrol 5 MG] 1 ea PO DAILY 10/24/20 [History] Metoprolol Succinate 50 mg [Toprol Xl 50 MG] 50 mg PO DAILY 03/16/23 [History] Hx Tetanus, Diphtheria Vaccination/Date Given: Yes Hx Influenza Vaccination/Date Given: No Hx Pneumococcal Vaccination/Date Given: No Travel Risk - Emerging Infectious Disease Are you exhibiting symptoms associated with any current EIDs: No - Review of Systems Constitutional: No Symptoms Respiratory: Cough, Dyspnea, No Stridor, No Wheezing Cardiac: Edema, No Chest Pain, No Palpitations Abdominal/Gastrointestinal: No Symptoms - Past Medical History Pertinent Past Medical History: Yes Neurological History: Peripheral Neuropathy ENT History: Other Cardiac History: Hypertension Respiratory History: No Pertinent History Endocrine Medical History: Diabetes Type II Musculoskeletal History: No Pertinent History GI Medical History: No Pertinent History History: Dialysis, Renal Disease Psycho-Social History: No Pertinent History Female Reproductive Disorders: No Pertinent History Other Medical History: legally blind - Past Surgical History Past Surgical History: Yes Neuro Surgical History: No Pertinent History Cardiac: No Pertinent History Respiratory: No Pertinent History Gastrointestinal: No Pertinent History Genitourinary: No Pertinent History Musculoskeletal: No Pertinent History Female Surgical History: No Pertinent History Other Surgical History: fistula, balloon procedure to fistula rt arm - Social History Smoking Status: Current every day smoker How long have you smoked: 40 years Exposure to second hand smoke: Yes Drug Use: none Patient Lives Alone: No - Social Determinants of Health Do you worry about a steady place to live?: Yes In the past 12 months,have you had to go without utilities?: No Transportation Issues: No Has anyone in your support network made you feel unsafe?: No Have you or anyone in your house had to go without enough: Yes - Nursing Vital Signs Nursing Vital Signs: Initial Vital Signs Temperature 97.6 F 09/30/23 20:25 Pulse Rate 103 H 09/30/23 20:25 Respiratory Rate 14 09/30/23 20:25 Blood Pressure 134/114 09/30/23 20:25 O2 Sat by Pulse Oximetry 87 L 09/30/23 20:25 Pain Scale Pain Intensity 0 - Physical Exam General Appearance: no apparent distress, alert Respiratory Exam: airway intact, diminished breath sounds (diffusely), crackles/rales (lower lob crackles b/l), No chest tenderness, No respiratory distress, No accessory muscle use Cardiovascular/Chest Exam: normal heart sounds, edema (1+ LE edema), tachycardia Abdominal/Gastrointestinal Exam: soft Neurologic Exam: alert, oriented x 3, cooperative, normal mood/affect SpO2 Interpretation: normal SpO2: 95 O2 Delivery: Venti-Mask - Course EKG Interpreted by Me: RATE (103), Sinus Tach, Other (some peaked T waves noted, qtcb 485, not suggestive of acute ischemia, non-specific ST-T changes) Ordered Tests: Active Orders 24 hr Category Date Time Status AMA [Release AMA] OM.NOW Care 09/30/23 23:14 Completed IV Insertion STAT Care 09/30/23 20:52 Completed Oxygen-ED Only Nasal Cannula 4 lpm Care 09/30/23 20:13 Completed CHEST 1 VIEW (PORTABLE) Stat Exams 09/30/23 20:26 Taken ARTERIAL BLOOD GASES Stat Lab 09/30/23 20:25 Completed CBC W DIFF Stat Lab 09/30/23 20:42 Completed CMP Stat Lab 09/30/23 20:42 Completed Lactic Acid Stat Lab 09/30/23 20:25 Completed MAGNESIUM Stat Lab 09/30/23 20:42 Completed NT PRO BNPII Stat Lab 09/30/23 20:42 Completed TROPONIN Q4H Lab 09/30/23 20:42 Completed Respiratory Therapy Assessment DAILY RT 09/30/23 20:55 Completed Medication Summary Discontinued Medications Generic Name Dose Route Start Last Admin Trade Name Freq PRN Reason Stop Dose Admin Albuterol/Ipratropium Confirm 09/30/23 20:22 Ipratropium/Albuterol Sulfate 3 Ml Ampul.Neb Administered 09/30/23 20:23 Dose 3 ml IH .STK-MED ONE Albuterol/Ipratropium 3 ml 09/30/23 20:25 09/30/23 20:25 Ipratropium/Albuterol Sulfate 3 Ml Ampul.Neb IH 09/30/23 20:26 3 ml STAT ONE Administration Methylprednisolone Sodium 0 mg 09/30/23 20:25 09/30/23 21:01 Succinate 125 mg/ Sterile IV 09/30/23 20:26 125 mg Water 2 ml STAT ONE Administration Dextrose 50 ml 09/30/23 21:32 09/30/23 21:39 Dextrose 50%-Water 50 Ml Abboject IV 09/30/23 21:33 50 ml STAT ONE Administration Dextrose Confirm 09/30/23 21:36 Dextrose 50%-Water 50 Ml Abboject Administered 09/30/23 21:37 Dose 50 ml IV .STK-MED ONE Sodium Chloride 1,000 mls @ 150 mls/hr 09/30/23 20:30 09/30/23 21:01 Sodium Chloride 0.9% 1000 Ml IV 10/30/23 20:29 150 mls/hr .Q6H40M CAITLIN Administration Sodium Chloride Confirm 09/30/23 20:55 Sodium Chloride 0.9% 1000 Ml Administered 09/30/23 20:56 Dose 1,000 mls @ ud .ROUTE .STK-MED ONE Insulin Human Regular 10 unit 09/30/23 21:32 09/30/23 21:40 Insulin Regular, Human 1 Unit IV 09/30/23 21:33 10 unit STAT ONE Administration Insulin Human Regular Confirm 09/30/23 21:36 Insulin Regular, Human 1 Unit Administered 09/30/23 21:37 Dose 10 unit .ROUTE .STK-MED ONE Lorazepam 1 mg 09/30/23 20:25 09/30/23 21:02 Lorazepam 2 Mg/1 Ml 2 Mg Vial IV 09/30/23 20:26 1 mg STAT ONE Administration Lorazepam Confirm 09/30/23 20:55 Lorazepam 2 Mg/1 Ml 2 Mg Vial Administered 09/30/23 20:56 Dose 2 mg .ROUTE .STK-MED ONE Methylprednisolone Sodium Succinate Confirm 09/30/23 20:55 Methylprednis Sod Succ 125 Mg/2 Ml Vial Administered 09/30/23 20:56 Dose 125 mg .ROUTE .STK-MED ONE Sterile Water Confirm 09/30/23 20:54 Water For Injection,Sterile 10 Ml Vial Administered 09/30/23 20:55 Dose 10 ml IJ .STK-MED ONE Lab/Rad Data: Laboratory Result Diagrams 09/30/23 20:42 09/30/23 20:42 Laboratory Results 09/30/23 09/30/23 09/30/23 Range/Units 20:43 20:42 20:42 WBC (4.0-10.5) x10^3/uL RBC (4.1-5.4) x10^6/uL Hgb (12.0-16.0) g/dL Hct (35-47) % MCV (78-100) fL MCH (26-32) pg MCHC (32-36) g/dL RDW (11.5-14.0) % Plt Count (150-450) x10^3/uL MPV (7.5-11.0) fL Gran % (36.0-66.0) % Immature Gran % (Auto) (0.00-0.4) % Nucleat RBC Rel Count (0.00-0.1) % Eos # (Auto) (0-0.5) x10^3/uL Immature Gran # (Auto) (0.00-0.03) x10^3u/L Absolute Lymphs (auto) (1.0-4.6) x10^3/uL Absolute Monos (auto) (0.0-1.3) x10^3/uL Absolute Nucleated RBC (0.00-0.01) x10^3u/L Lymphocytes % (24.0-44.0) % Monocytes % (0.0-12.0) % Eosinophils % (0.00-5.0) % Basophils % (0.0-0.4) % Absolute Granulocytes (1.4-6.9) x10^3/uL Basophils # (0-0.4) x10^3/uL Puncture Site pCO2 (35-45) mmHg pO2 (75-100) mmHg Base Excess (-2.0-2.0) O2 Saturation (94-100) g/dF ABG pH (7.35-7.45) ABG HCO3 (22-28) ABG O2 Sat (Measured) (95-100) % Terell Test A-a Gradient a/A Ratio Hemoglobin Carboxyhemoglobin (0.0-6.9) % THgb Methemoglobin (1.4-1.5) % Potassium (3.5-5.1) Temperature C POC O2 Flow Rate % Sodium (135-145) mmol/L Chloride (98-107) mmol/L Carbon Dioxide (22-30) mmol/L Anion Gap (5-15) MEQ/L BUN (7-17) mg/dL Creatinine (0.52-1.04) mg/dL Estimated GFR ML/MIN Glucose (74-106) mg/dL Lactic Acid (0.4-2.0) Calcium (8.4-10.2) mg/dL Magnesium (1.6-2.3) mg/dL Total Bilirubin (0.2-1.3) mg/dL AST (14-36) U/L ALT (0-35) U/L Alkaline Phosphatase (38-126) U/L Troponin I 0.419 H* (0.000-0.033) ng/mL NT-Pro-B Natriuret Pep 10678 (<300) pg/mL Serum Total Protein (6.3-8.2) g/dL Albumin (3.5-5.0) g/dL Influenza Type A Ag NEGATIVE (NEGATIVE) Influenza Type B Ag NEGATIVE (NEGATIVE) RSV (PCR) NEGATIVE (NEGATIVE) SARS-CoV-2 (PCR) NEGATIVE (NEGATIVE) 09/30/23 09/30/2309/29/24 Range/Units 20:42 20:42 20:25 WBC 6.2 (4.0-10.5) x10^3/uL RBC 3.48 L (4.1-5.4) x10^6/uL Hgb 11.9 L (12.0-16.0) g/dL Hct 37.0 (35-47) % MCV 106.3 H (78-100) fL MCH 34.2 H (26-32) pg MCHC 32.2 (32-36) g/dL RDW 14.2 H (11.5-14.0) % Plt Count 152 (150-450) x10^3/uL MPV 11.9 H (7.5-11.0) fL Gran % 84.3 H (36.0-66.0) % Immature Gran % (Auto) 0.2 (0.00-0.4) % Nucleat RBC Rel Count 0.0 (0.00-0.1) % Eos # (Auto) 0.11 (0-0.5) x10^3/uL Immature Gran # (Auto) 0.01 (0.00-0.03) x10^3u/L Absolute Lymphs (auto) 0.54 L (1.0-4.6) x10^3/uL Absolute Monos (auto) 0.29 (0.0-1.3) x10^3/uL Absolute Nucleated RBC 0.00 (0.00-0.01) x10^3u/L Lymphocytes % 8.7 L (24.0-44.0) % Monocytes % 4.7 (0.0-12.0) % Eosinophils % 1.8 (0.00-5.0) % Basophils % 0.3 (0.0-0.4) % Absolute Granulocytes 5.25 (1.4-6.9) x10^3/uL Basophils # 0.02 (0-0.4) x10^3/uL Puncture Site VBG pCO2 44 (35-45) mmHg pO2 43 L* (75-100) mmHg Base Excess 15.4 H (-2.0-2.0) O2 Saturation 70.2 L (94-100) g/dF ABG pH 7.56 H* (7.35-7.45) ABG HCO3 39.4 H* (22-28) ABG O2 Sat (Measured) 76.6 L (95-100) % Terell Test N/A A-a Gradient 259 a/A Ratio 0.14 Hemoglobin 12.4 Carboxyhemoglobin 8.3 H* (0.0-6.9) % THgb Methemoglobin 0.0 L (1.4-1.5) % Potassium 6.0 H* 6.2 H* (3.5-5.1) Temperature 37.0 C POC O2 Flow Rate 50 % Sodium 137 (135-145) mmol/L Chloride 85 L (98-107) mmol/L Carbon Dioxide 37 H (22-30) mmol/L Anion Gap 21.9 H (5-15) MEQ/L BUN 68 H (7-17) mg/dL Creatinine 10.06 H (0.52-1.04) mg/dL Estimated GFR 4.2 ML/MIN Glucose 268 H (74-106) mg/dL Lactic Acid 3.7 H (0.4-2.0) Calcium 10.9 H (8.4-10.2) mg/dL Magnesium 2.5 H (1.6-2.3) mg/dL Total Bilirubin 1.20 (0.2-1.3) mg/dL AST 17 (14-36) U/L ALT 16 (0-35) U/L Alkaline Phosphatase 73 (38-126) U/L Troponin I (0.000-0.033) ng/mL NT-Pro-B Natriuret Pep (<300) pg/mL Serum Total Protein 8.0 (6.3-8.2) g/dL Albumin 4.8 (3.5-5.0) g/dL Influenza Type A Ag (NEGATIVE) Influenza Type B Ag (NEGATIVE) RSV (PCR) (NEGATIVE) SARS-CoV-2 (PCR) (NEGATIVE) - Progress Progress: re-examined Air Movement: fair Progress Note: 10/01/23 00:18 K - 6.0, given albuterol, 10u insulin + 1amp d50, some suggestion of peaked T waves on ekg, no cp on exam, no arrhythmia noted Cr > 11 - dialysis MWF - sees Dr Ross acutely anxious on initial exam, given 0.5mg ativan pt was placed on venti mask 2L, saturation >95%, tolerated well BNP > 43849 [facility] evaluation of new onset CHF pt could not be admitted to our facility 2/2 lack of inpatient dialysis pt refused to be transferred, requested to leave AMA I discussed at length the risks that pt is taking by leaving the hospital AMA, including risk of pt voiced understanding, reiterated to me the significance of her current m edical condition, and still wanted to leave AMA pt AxO x 4, has understanding of her situation, deemed to have capacity to make her own medical decisions Blood Culture(s) Obtained: No Antibiotics given: No Counseled pt/family regarding: lab results, diagnosis, need for follow-up, rad results Medical Desision Making - Diagnostic Testing Diagnostic test were ordered, analyzed, and reviewed by me: Yes Radiological Interpretation: Interpreted by me - Risk of complications The pt has a high risk of morbidity or mortality based on: Decision regarding hospitilization or escalation of hosp level of care - Departure Departure Disposition: AMA Clinical Impression: Shortness of breath, Hyperkalemia, Elevated serum creatinine Acute exacerbation of CHF (congestive heart failure) Qualifiers: Heart failure type: unspecified Qualified Code(s): I50.9 - Heart failure, unspecified Condition: Serious Critical Care Time: No Referrals: FIOR DASILVA [Primary Care Provider] - Follow up/PCP as directed Instructions: Heart Failure
[2023-09-30 20:42] VITALS: TEMP 97.6
[2023-09-30 20:45] LABS: Absolute Neutrophil Ct (ANC) 5.25 x10^3/uL (1.4-6.9); BASOPHIL % 0.3 % (0.0-0.4); Basophil (Absolute #) 0.02 x10^3/uL (0-0.4); Eosinophil % 1.8 % (0.00-5.0); Eosinophil (Absolute #) 0.11 x10^3/uL (0-0.5); Hemoglobin 11.9 g/dL (12.0-16.0); IMMATURE GRAN # 0.01 x10^3u/L (0.00-0.03); IMMATURE GRAN % 0.2 % (0.00-0.4); Lymphocyte (Absolute #) 0.54 x10^3/uL (1.0-4.6); Lymphocytes % 8.7 % (24.0-44.0); Mean Cell Volume 106.3 fL (78-100); Mean Corpuscular Hemoglobin 34.2 pg (26-32); Mean Corpuscular Hgb Concent. 32.2 g/dL (32-36); Mean Platelet Volume 11.9 fL (7.5-11.0); Monocyte (Absolute #) 0.29 x10^3/uL (0.0-1.3); Monocytes % 4.7 % (0.0-12.0); Neutrophil % 84.3 % (36.0-66.0); Platelet Count 152 x10^3/uL (150-450); Red Blood Count 3.48 x10^6/uL (4.1-5.4); Red Cell Distribution Width 14.2 % (11.5-14.0); White Blood Count 6.2 x10^3/uL (4.0-10.5)
[2023-09-30 20:48] LABS: A-aADO2 259; ABG HEMOGLOBIN 12.4; ARTERIAL BLD GAS O2 SATURATION 76.6 % (95-100); ARTERIAL BLOOD GAS BASE EXCESS 15.4 (-2.0-2.0); ARTERIAL BLOOD GAS FIO2 50 %; ARTERIAL BLOOD GAS PCO2 44 mmHg (35-45); HCO3- 39.4 (22-28); HGB O2 SAT 70.2 g/dF (94-100); Lactic Acid 3.7 (0.4-2.0); paO2 pAO1 0.14
[2023-09-30 20:49] LABS: ARTERIAL BLOOD GAS PO2 43 mmHg (75-100); ARTERIAL BLOOD GAS pH 7.56 (7.35-7.45)
[2023-09-30 20:50] LABS: ABG POTASSIUM 6.2 (3.5-5.1); CARBOXYHEMOGLOBIN 8.3 % THgb (0.0-6.9)
[2023-09-30 20:51] LABS: ABG SITE VBG
[2023-09-30] MEDS ORDERED: Sterile H2O 10 ml IJ ONE (20:54)
[2023-09-30] MEDS ORDERED: solu-MEDROL ONE (20:55)
[2023-09-30] MEDS ORDERED: Sodium Chloride 0.9% 1000 ML 1,000 ML ONE (20:55)
[2023-09-30] MEDS ORDERED: Ativan 2 MG/1 ML VIAL ONE (20:55)
[2023-09-30 20:57] LABS: ALBUMIN 4.8 g/dL (3.5-5.0); ANION GAP 21.9 MEQ/L (5-15); BILIRUBIN,TOTAL 1.2 mg/dL (0.2-1.3); Calcium 10.9 mg/dL (8.4-10.2); MAGNESIUM 2.5 mg/dL (1.6-2.3)
[2023-09-30] MEDS: solu-MEDROL 125 MG, Sterile H2O 10 ml 2 ML IV ONE (21:01)
[2023-09-30] MEDS: Sodium Chloride 0.9% 1000 ML 1,000 ML IV SCH (21:01)
[2023-09-30] MEDS: Ativan 2 MG/1 ML VIAL IV ONE (21:02)
[2023-09-30 21:03] LABS: Creatinine 1 10.06 mg/dL (0.52-1.04); EST GLOMERULAR FILTRATION RATE 4.2 ML/MIN
[2023-09-30 21:21] LABS: INFLUENZA A NEGATIVE (NEGATIVE); INFLUENZA B NEGATIVE (NEGATIVE); RESPIRATORY SYNCTIAL VIRUS NEGATIVE (NEGATIVE); SARS-CoV-2 Xpert Express NEGATIVE (NEGATIVE)
[2023-09-30] MEDS ORDERED: HUMULIN R ONE (21:36)
[2023-09-30] MEDS ORDERED: D50W 50 ml Abboject IV ONE (21:36)
[2023-09-30] MEDS: D50W 50 ml Abboject IV ONE (21:39)
[2023-09-30] MEDS: HUMULIN R IV ONE (21:40)
[2023-09-30 22:14] VITALS: BP 88/75; PULSE 86; RESP 10
[2023-10-01 00:18] VITALS: O2SAT 95
[2023-10-01 00:57] LABS: Slide Review 1 YES
--- NOTE | 2023-10-01 08:45 | XRAY ---
Indication: Short of breath. Comparison: April 15, 2023 Portable chest now demonstrates mild diffuse pulmonary edema with tiny bibasilar effusions. No cardiomegaly. Bony thorax intact again with incompletely visualized left upper extremity stent grafts. Comment: Lung findings not reported by interpreting ER clinician. Telephone report was given to Dr. Acosta at 0841 hrs. on October 01, 2023.
== END 2023-09-30 22:50 | disposition left against medical advice (07) ==
LOC: ED 20:11
DX: R06.02 Shortness of breath (principal); E87.5 Hyperkalemia; R79.89 Other specified abnormal findings of blood chemistry; I13.2 Hypertensive heart and chronic kidney disease with heart failure and with stage 5 chronic kidney disease, or end stage renal disease; I50.9 Heart failure, unspecified; E11.22 Type 2 diabetes mellitus with diabetic chronic kidney disease; N18.5 Chronic kidney disease, stage 5; R05.1 Acute cough; Z79.899 Other long term (current) drug therapy; Z72.0 Tobacco use; Z99.2 Dependence on renal dialysis
CPT/HCPCS: 0241U; 36000; 36415; 36600; 71045; 80053; 82375; 82803; 83605; 83735; 83880; 84484; 85025; 94640; 96374; 99284; 96375; J1815; J2060; J2919; A9270-GY

== ENCOUNTER 2024-04-14 03:40 | Emergency (ER) | payer MEDICARE ==
[2024-04-14 04:09] VITALS: PULSE 114; RESP 20; TEMP 97.6
[2024-04-14 04:23] VITALS: BP 70/36; O2SAT 94
--- NOTE | 2024-04-14 04:41 | ERPHSYRPT ---
- History of Present Illness Source: patient Exam Limitations: no limitations Patient Subjective Stated Complaint: Left hand pain and swelling to fingers. Redness noted to all 5 fingers. Fingers are cold to touch. States has been going on for while. Has seen hand and foot doctor but stated he could not do anything. Asking what she can do for her hand pain and swelling. Triage Nursing Assessment: Patient presents with left hand pain and swelling to fingers. Redness noted to all 5 fingers. Fingers are cold to touch. States has been going on for while. Has seen hand and foot doctor but stated he could not do anything. Patient states is here to find out what she can do for the pain and swelling. Physician History: Patient bites her nails. She has recurrent infections around her paronychia area. She is having 1 now. This been going on for months.There is no vascular compromise.Pain is mild to moderate. She does not have any fever chills or systemic symptoms. Allergies/Adverse Reactions: clindamycin Allergy (Intermediate, Verified 04/14/24 04:10) Difficulty Swallowing DAVID Inhibitors Allergy (Verified 04/14/24 04:10) hydralazine Allergy (Verified 04/14/24 04:10) Rash Iodinated Contrast Media Allergy (Verified 04/14/24 04:10) Penicillins Allergy (Verified 04/14/24 04:10) baby oil Allergy (Uncoded 04/14/24 04:10) Home Medications: Glipizide 5 mg [Glucotrol 5 MG] 1 ea PO DAILY 10/24/20 [History] Aspirin 81 gm Chew [Baby Aspirin 81 mg Chew] 81 mg PO DAILY 04/14/24 [History] Ferric Citrate [Auryxia] 210 mg PO TID 04/14/24 [History] Lanthanum Carbonate [Fosrenol] 1,000 mg PO TID 04/14/24 [History] Hx Tetanus, Diphtheria Vaccination/Date Given: Yes Hx Influenza Vaccination/Date Given: No Hx Pneumococcal Vaccination/Date Given: No Immunizations Up to Date: No Travel Risk - International Travel Have you traveled outside of the country in past 3 weeks: No - Emerging Infectious Disease Are you exhibiting symptoms associated with any current EIDs: No Symptoms: Shortness of Breath - Review of Systems Constitutional: No Symptoms Eyes: No Symptoms Skin: Cellulitis - Past Medical History Pertinent Past Medical History: Yes Neurological History: Peripheral Neuropathy ENT History: Cataracts, Macular Degeneration, Other Cardiac History: High Cholesterol, Hypertension Respiratory History: COPD Endocrine Medical History: Diabetes Type II Musculoskeletal History: No Pertinent History GI Medical History: GERD History: Dialysis, Renal Disease Psycho-Social History: No Pertinent History Female Reproductive Disorders: No Pertinent History Other Medical History: legally blind - Past Surgical History Past Surgical History: Yes Neuro Surgical History: No Pertinent History Cardiac: No Pertinent History Respiratory: No Pertinent History Gastrointestinal: No Pertinent History Genitourinary: No Pertinent History Musculoskeletal: No Pertinent History Female Surgical History: No Pertinent History Other Surgical History: fistula L and R arm, balloon procedure to fistula rt arm, stent placement multiple locations - Female History Hx Last Menstrual Period: 10yrs ago Hx Now: No - Social History Smoking Status: Current every day smoker How long have you smoked: 35 Exposure to second hand smoke: Yes Drug Use: none Patient Lives Alone: No - Social Determinants of Health Will the patient participate in the screening: Yes Do you worry about a steady place to live?: No Do you have any problems with any of the following?: No known problems In the past 12 months,have you had to go without utilities?: No Transportation Issues: No Has anyone in your support network made you feel unsafe?: No Have you or anyone in your house had to go without enough: No - Nursing Vital Signs Nursing Vital Signs: Initial Vital Signs Temperature 97.6 F 04/14/24 03:41 Pulse Rate 114 H 04/14/24 03:41 Respiratory Rate 20 04/14/24 03:41 Blood Pressure 62/46 04/14/24 03:41 O2 Sat by Pulse Oximetry 95 04/14/24 03:41 Pain Scale Pain Intensity 4 - Physical Exam General Appearance: no apparent distress Skin Exam: other (Draining paronychia on her left middle finger. There are some erythema on the skin. Peripheral neurovascular is intact) SpO2: 94 - Course Nursing assessment & vital signs reviewed: Yes - Progress Progress Note: Patient was stable throughout stay. I will start her on antibiotics and give her some [place] for pain. She is going to follow-up with her primary care [facility] 04/14/24 04:37 - Departure Departure Disposition: Home Clinical Impression: Paronychia of finger, Cellulitis Condition: Stable Critical Care Time: No Referrals: FIOR DASILVA [Primary Care Provider] - Follow up/PCP as directed Instructions: Paronychia Prescriptions: Hydrocodone/Acetaminophen [Hydrocodone-Acetamin 5-325 mg] 1 tab PO Q6HPRN PRN #14 tablet MDD 4 PRN Reason: Pain Sulfamethoxazole/Trimethoprim [Bactrim Ds Tablet] 1 each PO BID #20 tablet
[2024-04-14] MEDS ORDERED: BACTRIM DS TABLET PO ONE (04:47)
[2024-04-14] MEDS ORDERED: NORCO 5/325 MG ONE (04:47)
[2024-04-14] MEDS: NORCO 5/325 MG PO ONE (04:48)
[2024-04-14] MEDS: BACTRIM DS TABLET PO STA (04:48)
== END 2024-04-14 04:58 | disposition home or self-care (01) ==
LOC: ED 03:40
DX: L03.113 Cellulitis of right upper limb (principal); M79.642 Pain in left hand; R60.0 Localized edema; L03.011 Cellulitis of right finger
CPT/HCPCS: 99282; A9270-GY

== ENCOUNTER 2024-07-04 22:01 | Emergency (ER) | payer MEDICARE ==
[2024-07-04 22:06] VITALS: TEMP 99.2
--- NOTE | 2024-07-04 22:21 | ERPHSYRPT ---
- History of Present Illness Time Seen by Provider: 07/04/24 22:21 Source: patient, EMS, old records Exam Limitations: no limitations Patient Subjective Stated Complaint: pt reports feeling weak after dialysis today. states she had them take some extra off and doesnt know if it was too much. Triage Nursing Assessment: pt is aox3, pt is tearful upon exam, pupils perrl, resps easy and non labored, pt lung sounds are diminished, cap refill < 3 sec onds, radial pulses strong and equal, abd soft non tender, bowel sounds present, pt skin pink warm dry. Physician History: This is an obese white female patient who is 58 years old and is a patient of Dr. Nieto who arrives with significant generalized weakness. Patient was transported to the hospital by the production quality analyst service. Patient has chronic renal failure and has Sunday dialysis. Today, she requested that the dialysis unit remove more fluid than usual. She was in dialysis for 4 hours. Patient also has digits of the left hand and left foot that are chronically ischemic and cyanotic. There is scheduled to be amputated. Patient denies humph[address] st pain. Patient continues to smoke cigarettes daily. Patient has chronic renal failure on dialysis, peripheral neuropathy, hypertension, hyperlipidemia, COPD, type 2 diabetes and gastroesophageal reflux disease. Timing/Duration: today Severity: moderate Modifying Factors: Improves With: nothing Associated Symptoms: loss of appetite, weakness, No shortness of breath, No chest pain Allergies/Adverse Reactions: clindamycin Allergy (Intermediate, Verified 07/04/24 22:11) Difficulty Swallowing DAVID Inhibitors Allergy (Verified 07/04/24 22:11) hydralazine Allergy (Verified 07/04/24 22:11) Rash Iodinated Contrast Media Allergy (Verified 07/04/24 22:11) Penicillins Allergy (Verified 07/04/24 22:11) baby oil Allergy (Uncoded 07/04/24 22:11) Home Medications: Glipizide 5 mg [Glucotrol 5 MG] 1 ea PO DAILY 10/24/20 [History] Aspirin 81 gm Chew [Baby Aspirin 81 mg Chew] 81 mg PO DAILY 04/14/24 [History] Lanthanum Carbonate [Fosrenol] 1,000 mg PO TID 04/14/24 [History] Atorvastatin Calcium 40 mg PO DAILY 07/05/24 [History] Clopidogrel Bisulfate [Plavix] 75 mg PO DAILY 07/05/24 [History] Ferric Citrate [Auryxia] 2 tab PO TIDWMEALS 07/05/24 [History] Fludrocortisone Acetate 1 tab PO DAILY 07/05/24 [History] Hydrocodone/Acetaminophen [Hydrocodone-Acetamin 5-325 mg] 1 tab PO DAILY 07/05/24 [History] Levofloxacin [Levofloxacin 500 MG Tablet] 0.5 tab PO DAILY 07/05/24 [History] Hx Tetanus, Diphtheria Vaccination/Date Given: Yes Hx Influenza Vaccination/Date Given: No Hx Pneumococcal Vaccination/Date Given: No Immunizations Up to Date: Yes Travel Risk - International Travel Have you traveled outside of the country in past 3 weeks: No - Emerging Infectious Disease Are you exhibiting symptoms associated with any current EIDs: No Symptoms: Shortness of Breath - Review of Systems Constitutional: Weakness Eyes: No Symptoms Ears, Nose, & Throat: No Symptoms Respiratory: No Symptoms Cardiac: No Symptoms Abdominal/Gastrointestinal: No Symptoms Genitourinary Symptoms: No Symptoms Musculoskeletal: No Symptoms Skin: Other (Chronic ischemia and cyanosis of the digits of the left hand and left foot) Neurological: Lethargy Psychological: No Symptoms Endocrine: No Symptoms Hematologic/Lymphatic: No Symptoms Immunological/Allergic: No Symptoms All Other Systems: Reviewed and Negative - Past Medical History Pertinent Past Medical History: Yes Neurological History: Peripheral Neuropathy ENT History: Cataracts, Macular Degeneration, Other Cardiac History: High Cholesterol, Hypertension Respiratory History: COPD Endocrine Medical History: Diabetes Type II Musculoskeletal History: No Pertinent History GI Medical History: GERD History: Dialysis, Renal Disease Psycho-Social History: No Pertinent History Female Reproductive Disorders: No Pertinent History Other Medical History: legally blind, hard of hearing - Past Surgical History Past Surgical History: Yes Neuro Surgical History: No Pertinent History Cardiac: No Pertinent History Respiratory: No Pertinent History Gastrointestinal: No Pertinent History Genitourinary: No Pertinent History Musculoskeletal: No Pertinent History Female Surgical History: No Pertinent History Other Surgical History: fistula L and R arm, balloon procedure to fistula rt arm, stent placement multiple locations - Female History Hx Last Menstrual Period: 10yrs ago Hx Now: No - Social History Smoking Status: Current every day smoker How long have you smoked: 35 Exposure to second hand smoke: Yes Drug Use: none - Social Determinants of Health Will the patient participate in the screening: Declined to provide - Nursing Vital Signs Nursing Vital Signs: Initial Vital Signs Temperature 99.2 F 07/04/24 22:01 Pulse Rate 110 H 07/04/24 22:01 Respiratory Rate 20 07/04/24 22:01 O2 Sat by Pulse Oximetry 95 07/04/24 22:01 Pain Scale Pain Intensity 0 - Physical Exam General Appearance: mild distress, alert, lethargy, obese Eye Exam: PERRL/EOMI, eyes nml inspection Ears, Nose, Throat Exam: normal ENT inspection, moist mucous membranes Neck Exam: normal inspection, non-tender, supple, full range of motion Respiratory Exam: normal breath sounds, lungs clear, airway intact, No chest tenderness, No respiratory distress Cardiovascular Exam: tachycardia Gastrointestinal/Abdomen Exam: soft, normal bowel sounds, No tenderness Pelvic Exam: not done Rectal Exam: not done Back Exam: normal inspection, normal range of motion, No CVA tenderness, No vertebral tenderness Extremity Exam: normal range of motion, pelvis stable, tenderness (Chronically ischemic and cyanotic digits of the left hand and left foot) Neurologic Exam: rn ambulatory II-XII nml as tested, depressed mood/affect, other Skin Exam: other (See above) Lymphatic Exam: No adenopathy SpO2 Interpretation: normal SpO2: 95 O2 Delivery: Room Air - Course Nursing assessment & vital signs reviewed: Yes EKG Interpreted by Me: RATE (111), Sinus Tach, NORMAL AXIS, NORMAL INTERVALS, NO RMAL QRS, Other (I do not appreciate ST segment ischemic changes. QTc is 440.) Ordered Tests: Active Orders 24 hr Category Date Time Status Route Sales Associate STAT Care 07/04/24 22:22 Active EKG-ER Only STAT Care 07/04/24 22:21 Active EKG-ER Only STAT Care 07/05/24 04:08 Active IV Insertion STAT Care 07/04/24 22:21 Active Pulse Oximetry (ED) STAT Care 07/04/24 22:21 Active CHEST 1 VIEW (PORTABLE) Stat Exams 07/04/24 22:22 Taken HEAD WITHOUT CONTRAST [CT] Stat Exams 07/05/24 01:55 Completed ABG [ARTERIAL BLOOD GASES] Stat Lab 07/05/24 02:55 Ordered CBC W DIFF Stat Lab 07/04/24 22:45 Completed CMP Stat Lab 07/04/24 22:45 Completed MAGNESIUM Stat Lab 07/04/24 22:45 Completed MONO SCREEN Stat Lab 07/04/24 22:45 Completed NT PRO BNPII Stat Lab 07/04/24 22:45 Completed TROPONIN Q4H Lab 07/04/24 22:45 Completed TROPONIN Q4H Lab 07/05/24 02:08 Completed TROPONIN Q4H Lab 07/05/24 06:30 Ordered VENOUS BLOOD GAS Stat Lab 07/05/24 04:04 Ordered Medication Summary Generic Name Dose Route Start Last Admin Trade Name Freq PRN Reason Stop Dose Admin Sodium Chloride 1,000 mls @ 100 mls/hr 07/04/24 22:30 07/05/24 05:03 Sodium Chloride 0.9% 1000 Ml IV 08/03/24 22:29 0 mls/hr .Q10H CAITLIN Infusion Discontinued Medications Generic Name Dose Route Start Last Admin Trade Name Freq PRN Reason Stop Dose Admin Lidocaine/Prilocaine 2.5 gm 07/05/24 04:51 07/05/24 04:54 Lidocaine/Prilocaine 5 Gm 5 Gm Tube TP 07/05/24 04:52 2.5 gm STAT ONE Administration Lidocaine/Prilocaine Confirm 07/05/24 04:52 Lidocaine/Prilocaine 5 Gm 5 Gm Tube Administered 07/05/24 04:53 Dose 5 gm TP .STK-MED ONE Lorazepam 0.5 mg 07/05/24 03:57 07/05/24 04:04 Lorazepam 2 Mg/1 Ml 2 Mg Vial IV 07/05/24 03:58 0.5 mg STAT ONE Administration Lorazepam Confirm 07/05/24 04:00 Lorazepam 2 Mg/1 Ml 2 Mg Vial Administered 07/05/24 04:01 Dose 2 mg .ROUTE .STK-MED ONE Morphine Sulfate 2 mg 07/05/24 04:24 07/05/24 04:28 Morphine Sulfate 2 Mg/Ml Inj IV 07/05/24 04:25 2 mg STAT ONE Administration Morphine Sulfate Confirm 07/05/24 04:26 Morphine Sulfate 2 Mg/Ml Inj Administered 07/05/24 04:27 Dose 2 mg .ROUTE .STK-MED ONE Ondansetron HCl 4 mg 07/05/24 04:24 07/05/24 04:28 Ondansetron Hcl 4 Mg/2 Ml Vial IV 07/05/24 04:25 4 mg STAT ONE Administration Ondansetron HCl Confirm 07/05/24 04:26 Ondansetron Hcl 4 Mg/2 Ml Vial Administered 07/05/24 04:27 Dose 4 mg .ROUTE .STK-MED ONE Lab/Rad Data: Laboratory Result Diagrams 07/04/24 22:45 07/04/24 22:45 Laboratory Results 07/05/24 07/05/24 07/04/24 Range/Units 02:08 02:08 22:45 WBC (3.98-10.04) x10^3/uL RBC (3.93-5.22) x10^6/uL Hgb (11.2-15.7) g/dL Hct (34.1-44.9) % MCV (79.4-94.8) fL MCH (25.6-32.2) pg MCHC (32.2-35.5) g/dL RDW (11.7-14.4) % Plt Count (182-369) x10^3/uL MPV (9.4-12.3) fL Gran % (34.0-71.1) % Immature Gran % (Auto) (0.001-0.429) % Nucleat RBC Rel Count (0.00-0.2) % Eos # (Auto) (0.04-0.36) x10^3/uL Immature Gran # (Auto) (0.001-0.031) x10^3u/L Absolute Lymphs (auto) (1.18-3.74) x10^3/uL Absolute Monos (auto) (0.24-0.86) x10^3/uL Absolute Nucleated RBC (0.00-0.012) x10^3u/L Lymphocytes % (19.3-51.7) % Monocytes % (4.7-12.5) % Eosinophils % (0.7-5.8) % Basophils % (0.1-1.2) % Absolute Granulocytes (1.56-6.13) x10^3/uL Basophils # (0.01-0.08) x10^3/uL Sodium (135-145) mmol/L Potassium (3.5-5.1) mmol/L Chloride (98-107) mmol/L Carbon Dioxide (22-30) mmol/L Anion Gap (5-15) MEQ/L BUN (7-17) mg/dL Creatinine (0.52-1.04) mg/dL Estimated GFR ML/MIN Glucose (74-106) mg/dL Calcium (8.4-10.2) mg/dL Magnesium (1.6-2.3) mg/dL Total Bilirubin (0.2-1.3) mg/dL AST (14-36) U/L ALT (0-35) U/L Alkaline Phosphatase (38-126) U/L Ammonia < 9 L (9-30) umol/L Troponin I 1.360 H* (0.000-0.033) ng/mL NT-Pro-B Natriuret Pep (<300) pg/mL Serum Total Protein (6.3-8.2) g/dL Albumin (3.5-5.0) g/dL Monoscreen (NEGATIVE) Influenza Type A Ag POSITIVE A (NEGATIVE) Influenza Type B Ag NEGATIVE (NEGATIVE) RSV (PCR) NEGATIVE (NEGATIVE) SARS-CoV-2 (PCR) NEGATIVE (NEGATIVE) Slides for Path Review 07/04/24 07/04/24 07/04/24 Range/Units 22:45 22:45 22:45 WBC (3.98-10.04) x10^3/uL RBC (3.93-5.22) x10^6/uL Hgb (11.2-15.7) g/dL Hct (34.1-44.9) % MCV (79.4-94.8) fL MCH (25.6-32.2) pg MCHC (32.2-35.5) g/dL RDW (11.7-14.4) % Plt Count (182-369) x10^3/uL MPV (9.4-12.3) fL Gran % (34.0-71.1) % Immature Gran % (Auto) (0.001-0.429) % Nucleat RBC Rel Count (0.00-0.2) % Eos # (Auto) (0.04-0.36) x10^3/uL Immature Gran # (Auto) (0.001-0.031) x10^3u/L Absolute Lymphs (auto) (1.18-3.74) x10^3/uL Absolute Monos (auto) (0.24-0.86) x10^3/uL Absolute Nucleated RBC (0.00-0.012) x10^3u/L Lymphocytes % (19.3-51.7) % Monocytes % (4.7-12.5) % Eosinophils % (0.7-5.8) % Basophils % (0.1-1.2) % Absolute Granulocytes (1.56-6.13) x10^3/uL Basophils # (0.01-0.08) x10^3/uL Sodium 137 (135-145) mmol/L Potassium 5.6 H (3.5-5.1) mmol/L Chloride 90 L (98-107) mmol/L Carbon Dioxide 20 L (22-30) mmol/L Anion Gap 32.8 H (5-15) MEQ/L BUN 27 H (7-17) mg/dL Creatinine 5.18 H (0.52-1.04) mg/dL Estimated GFR 9.3 ML/MIN Glucose 88 (74-106) mg/dL Calcium 8.9 (8.4-10.2) mg/dL Magnesium 2.4 H (1.6-2.3) mg/dL Total Bilirubin 1.90 H (0.2-1.3) mg/dL AST 122 H (14-36) U/L ALT 35 (0-35) U/L Alkaline Phosphatase 270 H (38-126) U/L Ammonia (9-30) umol/L Troponin I 0.576 H* (0.000-0.033) ng/mL NT-Pro-B Natriuret Pep 49927 (<300) pg/mL Serum Total Protein 6.9 (6.3-8.2) g/dL Albumin 4.3 (3.5-5.0) g/dL Monoscreen NEGATIVE (NEGATIVE) Influenza Type A Ag (NEGATIVE) Influenza Type B Ag (NEGATIVE) RSV (PCR) (NEGATIVE) SARS-CoV-2 (PCR) (NEGATIVE) Slides for Path Review 07/04/24 Range/Units 22:45 WBC 11.0 H (3.98-10.04) x10^3/uL RBC 3.66 L (3.93-5.22) x10^6/uL Hgb 13.6 (11.2-15.7) g/dL Hct 43.7 (34.1-44.9) % MCV 119.4 H (79.4-94.8) fL MCH 37.2 H (25.6-32.2) pg MCHC 31.1 L (32.2-35.5) g/dL RDW 14.9 H (11.7-14.4) % Plt Count 100 L (182-369) x10^3/uL MPV 11.9 (9.4-12.3) fL Gran % 88.3 H (34.0-71.1) % Immature Gran % (Auto) 1.5 H (0.001-0.429) % Nucleat RBC Rel Count 0.2 (0.00-0.2) % Eos # (Auto) 0.01 L (0.04-0.36) x10^3/uL Immature Gran # (Auto) 0.16 H (0.001-0.031) x10^3u/L Absolute Lymphs (auto) 0.38 L (1.18-3.74) x10^3/uL Absolute Monos (auto) 0.69 (0.24-0.86) x10^3/uL Absolute Nucleated RBC 0.02 H (0.00-0.012) x10^3u/L Lymphocytes % 3.5 L (19.3-51.7) % Monocytes % 6.3 (4.7-12.5) % Eosinophils % 0.1 L (0.7-5.8) % Basophils % 0.3 (0.1-1.2) % Absolute Granulocytes 9.72 H (1.56-6.13) x10^3/uL Basophils # 0.03 (0.01-0.08) x10^3/uL Sodium (135-145) mmol/L Potassium (3.5-5.1) mmol/L Chloride (98-107) mmol/L Carbon Dioxide (22-30) mmol/L Anion Gap (5-15) MEQ/L BUN (7-17) mg/dL Creatinine (0.52-1.04) mg/dL Estimated GFR ML/MIN Glucose (74-106) mg/dL Calcium (8.4-10.2) mg/dL Magnesium (1.6-2.3) mg/dL Total Bilirubin (0.2-1.3) mg/dL AST (14-36) U/L ALT (0-35) U/L Alkaline Phosphatase (38-126) U/L Ammonia (9-30) umol/L Troponin I (0.000-0.033) ng/mL NT-Pro-B Natriuret Pep (<300) pg/mL Serum Total Protein (6.3-8.2) g/dL Albumin (3.5-5.0) g/dL Monoscreen (NEGATIVE) Influenza Type A Ag (NEGATIVE) Influenza Type B Ag (NEGATIVE) RSV (PCR) (NEGATIVE) SARS-CoV-2 (PCR) (NEGATIVE) Slides for Path Review YES - Progress Progress: improved, re-examined (Likely) Progress Note: 07/05/24 01:14 My medical decision making of the assignment of high complexity to this patient's medical issue today is based on review the patient's past medical history, reviewed the patient's medication list, reviewed patient drug allergy list, history present illness and physical findings on examination. The workup includes placement of intravenous line, infusion of low rate crystalloid solution, CBC, CMP, magnesium level, troponin level, twelve-lead EKG, viral swabs, monotest. Differential diagnosis includes but is not limited to anemia, arrhythmia, myocardial infarction, congestive heart failure The preliminary report of the chest x-ray was interpreted by me. I do not appreciate an acute cardiopulmonary process. I interpreted the patient's laboratory data results. Based on the laboratory data results, the patient has chronic renal failure. Patient has a significantly elevated BNP of over 89,000. Her troponin level was also elevated. The elevated troponin may be related to the fact is not clearing through the kidneys and/or right heart strain with a significantly elevated BNP. Patient also tested positive for influenza A I reviewed the results of the chest x-ray and laboratory results with the patient and her spouse. I think the patient needs to be in a monitored bed setting in the facility where the patient can undergo dialysis if needed. 07/05/24 04:26 I interpreted the repeat twelve-lead EKG performed on 07/05/2024 at 419 in the morning. Heart rate is 105 bpm in a sinus tachycardia rhythm. There is borderline prolonged VA interval. QTc is 491 I see no acute ischemic changes. However the computer reads as lateral infarct, recent. 07/05/24 06:[address] Bray, the hospitalist out of [facility]. I reviewed the patient's past medical history, presenting complaint, workup results and the patient to respond to our workup. I also reviewed the twelve-lead EKG, chest or x-ray and CT scan results with her. She accepts the patient in transfer. She accepted the patient in transfer at 4:40 AM. I was informed that there will be beds available late this morning or early this afternoon. I reassessed the patient. Patient's right middle finger was giving her the most pain per her report. We ultimately decided to place Emla cream on her right finger which seemed to help her per her report. She was able to rest. I will repeat the CBC, CMP and PT/INR/PTT at this time. I am transferring care of this patient to at shift change. I reviewed the patient history present illness, chief complaint, workup results that have been resulted and those that will be pending. He will follow-up on those labs that are pending. Counseled pt/family regarding: lab results, diagnosis, rad results Medical Desision Making - Independent Historian Additional History obtained from: Spouse, Warehouse General Laborer/EMT - Diagnostic Testing Diagnostic test were ordered, analyzed, and reviewed by me: Yes Radiological Interpretation: Interpreted by me, Teleradiologist Report - Risk of complications The pt has a high risk of morbidity or mortality based on: Decision regarding hospitilization or escalation of hosp level of care - Departure Departure Disposition: Transfer Clinical Impression: Renal failure, Generalized weakness, Elevated troponin, Elevated brain natriuretic peptide (BNP) level, Influenza A H1N1 infection, Restlessness Condition: Serious Critical Care Time: Yes Critical Care Time(excluding separately billable procedures): Critical 30-74 mins (55) Referrals: FIOR NIETO [Primary Care Provider] - Follow up/PCP as directed
[2024-07-04 22:53] LABS: Absolute Neutrophil Ct (ANC) 9.72 x10^3/uL (1.56-6.13); BASOPHIL % 0.3 % (0.1-1.2); Basophil (Absolute #) 0.03 x10^3/uL (0.01-0.08); Eosinophil % 0.1 % (0.7-5.8); Eosinophil (Absolute #) 0.01 x10^3/uL (0.04-0.36); Hematocrit 43.7 % (34.1-44.9); Hemoglobin 13.6 g/dL (11.2-15.7); IMMATURE GRAN # 0.16 x10^3u/L (0.001-0.031); IMMATURE GRAN % 1.5 % (0.001-0.429); Lymphocyte (Absolute #) 0.38 x10^3/uL (1.18-3.74); Lymphocytes % 3.5 % (19.3-51.7); Mean Cell Volume 119.4 fL (79.4-94.8); Mean Corpuscular Hemoglobin 37.2 pg (25.6-32.2); Mean Corpuscular Hgb Concent. 31.1 g/dL (32.2-35.5); Mean Platelet Volume 11.9 fL (9.4-12.3); Monocyte (Absolute #) 0.69 x10^3/uL (0.24-0.86); Monocytes % 6.3 % (4.7-12.5); NUCLEATED RBC # 0.02 x10^3u/L (0.00-0.012); NUCLEATED RBC % 0.2 % (0.00-0.2); Neutrophil % 88.3 % (34.0-71.1); Platelet Count 100 x10^3/uL (182-369); Red Blood Count 3.66 x10^6/uL (3.93-5.22); Red Cell Distribution Width 14.9 % (11.7-14.4)
[2024-07-04] MEDS ORDERED: Sodium Chloride 0.9% 1000 ML 1,000 ML ONE (23:07)
[2024-07-04] MEDS: Sodium Chloride 0.9% 1000 ML 1,000 ML IV SCH (23:08)
[2024-07-04 23:30] LABS: INFLUENZA B NEGATIVE (NEGATIVE); RESPIRATORY SYNCTIAL VIRUS NEGATIVE (NEGATIVE); SARS-CoV-2 Xpert Express NEGATIVE (NEGATIVE)
[2024-07-04 23:38] LABS: ALBUMIN 4.3 g/dL (3.5-5.0); ANION GAP 32.8 MEQ/L (5-15); BILIRUBIN,TOTAL 1.9 mg/dL (0.2-1.3); Calcium 8.9 mg/dL (8.4-10.2); Creatinine 1 5.18 mg/dL (0.52-1.04); EST GLOMERULAR FILTRATION RATE 9.3 ML/MIN; MAGNESIUM 2.4 mg/dL (1.6-2.3); Total Protein 6.9 g/dL (6.3-8.2)
[2024-07-04 23:39] LABS: INFLUENZA A POSITIVE (NEGATIVE)
[2024-07-04 23:53] LABS: Slide Review 1 YES
[2024-07-04 23:55] LABS: Potassium 5.6 mmol/L (3.5-5.1)
--- NOTE | 2024-07-05 03:38 | XRAY ---
CLINICAL HISTORY: lethargy COMPARISON: None. TECHNIQUE: Axial non-contrast CT scan of the brain was performed from the skull base to the high parietal region. One of the following dose reduction techniques were utilized for this exam: Automated exposure control, adjustment of the mA and/or kV according to patient size, use of iterative reconstruction. CTDI: 53.92, DLP: 1016.25 FINDINGS: Brain Parenchyma: Bilateral periventricular white matter - mainly frontal - hypoattenuation in keeping with chronic microangiopathy. Otherwise, normal attenuation of the cerebral hemispheres, cerebellum, and brainstem. No evidence of acute infarct, hemorrhage, or mass effect. No abnormal areas of hypo- or hyperattenuation. 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 Likely incidental of no clinical significance. Ventricular System: Ventricles are normal in size and configuration. No evidence of hydrocephalus or ventricular enlargement. Subarachnoid Spaces: Normal sulci and cisterns. No evidence of subarachnoid hemorrhage or extra-axial fluid collections. Cerebellum and Brainstem: Normal size and attenuation. No masses, lesions, or areas of abnormal attenuation. Orbits: Left-sided high-density vitreous. Please correlate with prior intervention history. A tiny calcification focus of the left optic nerve sheath/vascular is noted. Normal appearance of the rest of the globes, optic nerves, and extraocular muscles. No evidence of orbital masses or other abnormal denisity. Sinuses: Left maxillary retention cyst. Clear rest of the paranasal sinuses. No evidence of sinusitis or mucosal thickening. Mastoid Air Cells: Clear mastoid air cells. No evidence of mastoiditis. Skull: Normal skull morphology. IMPRESSION: 1. No acute intracranial hemorrhage or acute abnormality was identified. 2. Chronic microvascular ischemic changes. 3. Early changes of a stroke may not be detected on a CT scan. If strong clinical suspicion of stroke then suggest MRI with diffusion-weighted imaging. Electronically Signed by: Wilver Staley MD. (07/05/2024 03:33:25 EST)
[2024-07-05] MEDS ORDERED: Ativan 2 MG/1 ML VIAL ONE ×2 (04:00→17:59)
[2024-07-05] MEDS: Ativan 2 MG/1 ML VIAL IV ONE (04:04)
[2024-07-05] MEDS ORDERED: Zofran 4 MG/2 ML VIAL ONE (04:26)
[2024-07-05] MEDS ORDERED: MORPHINE SULFATE 2 MG INJ ONE ×2 (04:26→18:05)
[2024-07-05] MEDS: MORPHINE SULFATE 2 MG INJ IV ONE ×2 (04:28→18:06)
[2024-07-05] MEDS: Zofran 4 MG/2 ML VIAL IV ONE (04:28)
[2024-07-05] MEDS ORDERED: EMLA Cream 5 GM TP ONE (04:52)
[2024-07-05] MEDS: EMLA Cream 5 GM TP ONE (04:54)
[2024-07-05 07:00] LABS: Absolute Neutrophil Ct (ANC) 10.02 x10^3/uL (1.56-6.13); BASOPHIL % 0.3 % (0.1-1.2); Basophil (Absolute #) 0.03 x10^3/uL (0.01-0.08); Eosinophil (Absolute #) 0 x10^3/uL (0.04-0.36); Hematocrit 42.5 % (34.1-44.9); Hemoglobin 13.3 g/dL (11.2-15.7); IMMATURE GRAN # 0.16 x10^3u/L (0.001-0.031); IMMATURE GRAN % 1.4 % (0.001-0.429); Lymphocyte (Absolute #) 0.52 x10^3/uL (1.18-3.74); Lymphocytes % 4.5 % (19.3-51.7); Mean Cell Volume 119.7 fL (79.4-94.8); Mean Corpuscular Hemoglobin 37.5 pg (25.6-32.2); Mean Corpuscular Hgb Concent. 31.3 g/dL (32.2-35.5); Mean Platelet Volume 12.1 fL (9.4-12.3); Monocyte (Absolute #) 0.72 x10^3/uL (0.24-0.86); Monocytes % 6.3 % (4.7-12.5); NUCLEATED RBC # 0.02 x10^3u/L (0.00-0.012); NUCLEATED RBC % 0.2 % (0.00-0.2); Neutrophil % 87.5 % (34.0-71.1); Platelet Count 97 x10^3/uL (182-369); Red Blood Count 3.55 x10^6/uL (3.93-5.22); Red Cell Distribution Width 14.9 % (11.7-14.4); White Blood Count 11.5 x10^3/uL (3.98-10.04)
[2024-07-05 07:20] LABS: INR 1.77 (0.8-3.0); PROTIME 18.6 SECONDS (9.4-12.5); PTT 36.2 SECONDS (25.1-36.5)
[2024-07-05 07:27] LABS: ALBUMIN 4.1 g/dL (3.5-5.0); ANION GAP 35.2 MEQ/L (5-15); BILIRUBIN,TOTAL 2.1 mg/dL (0.2-1.3); Calcium 8.8 mg/dL (8.4-10.2); Creatinine 1 5.98 mg/dL (0.52-1.04); EST GLOMERULAR FILTRATION RATE 7.8 ML/MIN; Total Protein 6.5 g/dL (6.3-8.2)
[2024-07-05 07:39] LABS: Potassium 5.8 mmol/L (3.5-5.1)
[2024-07-05] MEDS: D50W 50 ml Abboject IV ONE ×2 (07:42→17:55)
--- NOTE | 2024-07-05 07:51 | XRAY ---
Indication: Weakness. Comparison: September 30, 2023 Portable chest less inflated without focal infiltrate, consolidation, or large effusion. Heart not enlarged. Bony thorax intact again with incompletely visualized left upper extremity stent grafts. New right subclavian stent graft. Impression: Nonacute chest with chronic features.
[2024-07-05 10:14] LABS: Slide Review 1 YES
[2024-07-05 16:25] VITALS: BP 53/40; RESP 14
[2024-07-05 17:47] VITALS: PULSE 91; O2SAT 98
[2024-07-05] MEDS ORDERED: D50W 50 ml Abboject IV ONE (17:54)
== END 2024-07-05 18:47 | disposition short-term general hospital (02) ==
LOC: ED 22:01
DX: J10.1 Influenza due to other identified influenza virus with other respiratory manifestations (principal); I12.0 Hypertensive chronic kidney disease with stage 5 chronic kidney disease or end stage renal disease; E11.22 Type 2 diabetes mellitus with diabetic chronic kidney disease; N18.6 End stage renal disease; R53.1 Weakness; R77.8 Other specified abnormalities of plasma proteins; R79.89 Other specified abnormal findings of blood chemistry; R45.1 Restlessness and agitation; E11.42 Type 2 diabetes mellitus with diabetic polyneuropathy; E78.5 Hyperlipidemia, unspecified; Z79.84 Long term (current) use of oral hypoglycemic drugs; Z79.02 Long term (current) use of antithrombotics/antiplatelets; Z79.891 Long term (current) use of opiate analgesic; Z79.899 Other long term (current) drug therapy; Z72.0 Tobacco use
CPT/HCPCS: 0241U; 36415; 70450; 71045; 80053; 82140; 82947; 83735; 83880; 84484; 85025; 85610; 85730; 86308; 93005; 93041; 94760; 96374; 96375; 96376; 99285; 99291; J2060; J2270; J2405; A9270-GY